=== PATIENT | female | born 1975 | race Caucasian/White ===

== ENCOUNTER 2023-01-15 08:48 | Outpatient (OUT) | payer OTHER, BC, SELFPAY ==
--- NOTE | 2023-01-15 08:51 | MM_ITS ---
Patient: BERENICE WISDOM Exam Date: 01/15/2023 : 1975 Gender:F Ordering : DR Clark Bro . Admission #: [id number] Family : DR BULL SALES M.D. Order #: [id number] CLICK HERE TO VIEW EXAM RADIOLOGY REPORT PROCEDURE: MM TOMOSYNTHESIS SCREENING BI COMPARISON: [facility] M[facility]M SCREEN 3D ANU CAD, 10/16/2021. [facility] M[facility]M SCREEN ANU W CAD, 05/24/2020. [facility] MAMM ANU DIAG W CAD, 11/09/2017. [facility] MAMM SCREEN ANU W CAD, 05/15/2017. INDICATIONS: Screening mammogram Z12.31 Calculator Name NCI Breast Cancer Risk Assessment Tool 5 Year Breast Cancer Risk 0.90% Lifetime Breast Cancer Risk 10.60% Personal Breast Cancer No Personal Ovarian Cancer No Treatments None Family Cancers Grandfather-paternal with bone and blood cancer at age 80. LOCATION: [facility] BREAST COMPOSITION: Heterogeneously dense,which may obscure small masses. FINDINGS: DIAGNOSTIC CATEGORY 2--BENIGN FINDING: RIGHT BREAST: No significant suspicious finding. Scattered benign-appearing calcifications are present. No significant change has occurred. LEFT BREAST: No significant suspicious finding. Scattered benign-appearing calcifications are present. No significant change has occurred. RECOMMENDATIONS: ROUTINE MAMMOGRAM AND CLINICAL EVALUATION IN 12 MONTHS. PLEASE NOTE: A NORMAL MAMMOGRAM DOES NOT EXCLUDE THE POSSIBILITY OF BREAST CANCER. A CLINICALLY SUSPICIOUS PALPABLE LUMP SHOULD BE BIOPSIED. Dictated by: Gustavo Braun M.D. on 01/15/2023 at 11:30 Approved by: Gustavo Braun M.D. on 01/15/2023 at 11:38
== END 2023-01-15 08:49 | disposition home or self-care (01) ==
PROVIDERS: PCP Family Medicine; Visit Provider Obstetrics & Gynecology
DX: Z12.31 Encounter for screening mammogram for malignant neoplasm of breast (principal); Z80.8 Family history of malignant neoplasm of other organs or systems
CPT/HCPCS: 77063; 77067

== ENCOUNTER 2024-03-01 19:18 | Outpatient (REF) | payer OTHER, BC, SELFPAY | END 2024-03-01 19:19 | disposition home or self-care (01) | LOC: LAB 19:18 | PROVIDERS: PCP Family Medicine; Visit Provider Physician Assistant | DX: Z01.419 Encounter for gynecological examination (general) (routine) without abnormal findings (principal) | CPT/HCPCS: 88175 ==

== ENCOUNTER 2025-03-07 18:41 | Outpatient (REF) | payer OTHER, BC, SELFPAY ==
--- OUTSIDE RECORDS SUMMARY | 2025-03-07 18:48 | XMS_ITS | CCD ---
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 Name Role Phone ELENO ., DR SANTOS Attending Unavailabl e ELENO ., DR SANTOS Consulting Unavailnancy e ELENO ., DR SANTOS Admitting Unavailnancy SALES, DR GOTTLIEB Primary Care Unavailable Veronica Sales MD Primary Care Provider MY EMMANUEL Attending Unavailable PRINCESS LEE Referring Unavailable PRINCESS LEE Primary Care Unavailable Veronica Sales MD Unavailable BEATA HARTMANN Referring Unavailable BEATA HARTMANN Attending Unavailable VERONICA SALES Attending Unavailable KRYS DUONG Attending Unavailable VERONICA SALES Attending Unavailable VERONICA SALES Attending Unavailable BEATA HARTMANN Attending Unavailable KRYS DUONG Referring Unavailable Princess Goodwin Primary Care Provider 1( [phone] VERONICA SALES Unavailable GARY JACKSON Unavailable VERONICA SALES Unavailable GARY JACKSON Unavailable PRINCESS LEE Referring Unavailable PRINCESS LEE Primary Care Unavailable Allergies Allergy Classification Reported Allergen(s) Allergy Type Date of Onset Reaction(s) Facility (3 sources) Naproxen; Translations: [NAPROXEN] Drug Allergy [address] [facility] Repository (18 sources) HMG-CoA reductase inhibitor Drug Allergy 3 [facility] (18 sources) Ibuprofen Drug Allergy 3 [facility] [employer] Work Phone: (19 sources) Naproxen; Translations: [NAPROXEN] Drug Allergy 4 GI Disturbance [facility] Work Phone: (2 sources) HMG-CoA reductase inhibitor; Translations: [PTIPOKV-GYW-NY A REDUCTASE INHIBITORS] Propensity to adverse reactions to drug 3 [facility] Medications Current Medications Medication Drug Class(es) Dates Sig (Normalized) Sig (Original) [id number] 200 actuat albuterol 0.09 mg/actuat metered dose inhaler (11 sources) beta2-Adrenergic Agonist Start: 06-13-2024 End: 06-13-2025 take 2 puff(s) by inhalation every four hours for wheezing albuterol HFA 90 mcg/act inhaler Indications: Subacute cough Inhale 2 puffs every 4 (four) hours if needed for wheezing 18 g 06/13/2024 03/07/2025 Discontinued (Therapy completed) End: 01-16-2025 take 2 puff(s) by inhalation every four hours for wheezing albuterol sulfate HFA 90 mcg/actuation aerosol inhaler INHALE 2 PUFFS EVERY 4 HOURS IF NEEDED FOR WHEEZING. 01/16/2025 completed Not Available Not Available Not Available calcium carbonate 500 mg oral tablet (3 sources) calcium carbonat e (Os-Arnoldo) 1250 (500 Ca) MG tablet every 12 (twelve) hours 0 Active doxycycline hyclate 100 mg oral tablet (4 sources) Tetracycline-class Drug Start: 2023 End: 2024 doxycycline (Vibra-Tabs) 100 MG tablet Indications: Acute non-recurrent pansinusitis Take 1 tablet (100 mg) by mouth in the morning and 1 tablet (100 mg) before bedtime. Do all this for 10 days. Take with a full glass of water and do not lie down for at least 30 minutes after.. 20 tablet 05/11/2024 05/21/2024 Active fluticasone propionate 0.05 mg/actuat metered dose nasal spray (2 sources) Corticosteroid take 1 spray(s) nasal route once daily fluticasone propionate 50 mcg/actuation nasal spray,suspension 1 spray in each nostril Once a day , Nasally active Encounter Date: 01/19/2024 Status: 'Taking'; Not Available Not Available Not Available hydrOXYzine hydrochloride 25 mg oral tablet (3 sources) Antihistamine Start: 2022 take 1 tablet by mouth every six hours as needed for anxiety and anxiety and anxiety hydrOXYzine HCl (Atarax) 25 MG tablet Indications: Anxiety Take 1 tablet (25 mg) by mouth every 6 (six) hours if needed for itching or anxiety 30 tablet 0 07/17/2023 Active methylPREDNISolone (2 sources) Corticosteroid Start: 2023 End: 2023 methylPREDNISolone (Medrol Dospak) 4 MG tablets Indications: Subacute cough Follow schedule on package instructions 21 tablet 06/13/2024 06/20/2024 Active predniSONE 20 mg oral tablet (2 sources) Start: 2023 take 1 tablet by mouth once daily prednisone 20 mg tablet 1 tablet Once a day , Orally 08/05/2023 active Encounter Date: 01/19/2024 Status: 'Not-Taking'; Not Available Not Available Not Available sertraline 50 mg oral tablet (20 sources) Serotonin Reuptake Inhibitor Start: 2023 End: 2024 take 1 tablet by mouth once daily sertraline (Zoloft) 50 MG tablet Indications: Anxiety TAKE 1 TABLET BY MOUTH EVERY DAY 90 tablet 1 01/29/2025 Active Start: 09-01-2023 sertraline (Zo loft) 50 MG tablet Indications: Anxiety 1 TAB ONCE DAILY 90 tablet 1 09/01/2023 Active Start: 08-10-2023 End: 09-01-2023 take 0.5 tablet by mouth every week in the morning, then take 1 tablet by mouth once daily sertraline (Zoloft) 50 MG tablet Indications: Anxiety TAKE 1/2 TABLET BY MOUTH IN THE MORNING FOR THE FIRST WEEK, THEN INCREASE TO 1 TAB ONCE DAILY 90 tablet 0 08/10/2023 09/01/2023 Discontinued (Reorder) take 0.5 tablet by m outh once daily sertraline 50 mg tablet TAKE 1/2 TABLET BY MOUTH EVERY DAY active Not Available Not Available Not Available sod sulf-pot chloride-mag sulf 1.479-0.188- 0.225 gram tablet (2 sources) Start: 01-21-2024 sod sulf-pot chloride-mag sulf 1.479-0.188- 0.225 gram tablet Indications: Encounter for screening colonoscopy Please see instructional sheet given by physicians office. 24 tablet 01/21/2024 Active traZODone hydrochloride 100 mg oral tablet (20 sources) Serotonin Reuptake Inhibitor Start: 09-07-2023 End: 01-29-2025 take 1 tablet by mouth at bedtime traZODone (Desyrel) 100 MG tablet Indications: Primary insomnia TAKE 1 TABLET BY MOUTH AT BEDTIME 90 tablet 1 01/29/2025 Active valACYclovir 500 mg oral tablet (9 sources) Herpesvirus Nucleoside Analog DNA Polymerase Inhibitor, Herpes Simplex Virus Nucleoside Analog DNA Polymerase Inhibitor, Herpes Zoster Virus Nucleoside Analog DNA Polymerase Inhibitor valACYclovir (Valtrex) 500 MG tablet Take by mouth 2 (two) times a day as needed Active Completed/Discontinued Medications Medication Drug Class(es) Dates Sig (Normalized) Sig (Original) amoxicillin 500 mg oral capsule (8 sources) Penicillin-class Antibacterial Start: 06-02-2024 End: 01-13-2025 take 1 capsule by mouth in the morning, then take 1 capsule by mouth in the evening, then take 1 capsule by mouth at bedtime amoxicillin (Amoxil) 500 MG capsule Indications: Strep pharyngitis Take 1 capsule (500 mg) by mouth in the morning and 1 capsule (500 mg) in the evening and 1 capsule (500 mg) before bedtime. Do all this for 10 days. 30 capsule 06/02/2024 06/13/2024 Discontinued Start: 08-05-2023 take 1 tablet by rodger th three times daily amoxicillin 500 mg tablet 1 tablet Three times a day , Orally 08/05/2023 active Encounter Date: 01/19/2024 Status: 'Not-Taking'; Not Available Not Available Not Available 12 hr cetirizine hydrochloride 5 mg / pseudoephedrine hydrochloride 120 mg extended release oral tablet (2 sources) alpha-Adrenergic Agonist, Histamine-1 Receptor Antagonist Start: 10-20-2023 End: 01-16-2025 take 1 tablet by mouth once daily as needed Zyrtec-D 5 mg-120 mg tablet,extended release 1 tablet as needed Once a day , Orally 10/20/2023 01/16/2025 completed Encounter Date: 01/19/2024 Status: 'Taking'; Not Available Not Available Not Available methylprednisolone 4 mg tablets in a dose pack (2 sources) End: 01-13-2025 methylprednisolone 4 mg tablets in a dose pack TAKE 6 TABLETS ON DAY 1 DIRECTED ON PACKAGE AND DECREASE BY 1 TAB EACH DAY FOR A TOTAL OF 6 DAYS 01/13/2025 completed Not Available Not Available Not Available Sutab 1.479-0.188-0.225 gram tablet (2 sources) End: 01-16-2025 Sutab 1.479-0.188-0.225 gram tablet PLEASE SEE INSTRUCTIONAL SHEET GIVEN BY PHYSICIANS OFFICE. 01/16/2025 completed Not Available Not Available Not Available Problems Active Problems Problem Classification Problem Date Documented Date Episodic/Chronic Abdominal pain (2 sources) Acute abdominal pain; Translations: [Right upper quadrant pain] Onset: 01-31-2025 Resolved: 01-31-2025 Episodic Anxiety disorders (5 sources) Anxiety; Translations: [Anxiety disorder, unspecified] Onset: 01-16-2025 09-01-2023 Chronic Cardiac dysrhythmias (1 source) Palpitations; Translations: [Palpitations] 09-01-2023 Episodic Disorders of lipid metabolism (20 sources) Dyslipidemia; Translations: [Hyperlipidemia, unspecified] Onset: 10-06-2019 06-30-2023 Chronic Headache; including migraine (18 sources) Tension-type headache; Translations: [Tension-type headache, unspecified, not intractable] Onset: 06-30-2023 06-30-2023 Chronic Immunizations and screening for infectious disease (1 source) Encounter for screening for human papillomavirus (HPV); Translations: [ENC SCREENING HUMAN PAPILLOMAVIRUS] Onset: 10-18-2022 Episodic Miscellaneous mental health disorders (3 sources) Primary insomnia; Translations: [Primary insomnia] 09-07-2023 Chronic Mood disorders (18 sources) Mild depression; Translations: [Mild depression] Onset: 06-30-2023 06-30-2023 Chronic Other lower respiratory disease (2 sources) Cough; Translations: [Subacute cough] 06-13-2024 Episodic Other nutritional; endocrine; and metabolic disorders (18 sources) Morbid obesity; Translations: [Morbid (severe) obesity due to excess calories] Onset: 10-06-2019 06-30-2023 Chronic Other nutritional; endocrine; and metabolic disorders (18 sources) Obese class I; Translations: [Obesity, unspecified] Onset: 02-29-2020 06-30-2023 Chronic Other screening for suspected conditions (not mental disorders or infectious disease) (8 sources) Encounter for screening for malignant neoplasm of cervix; Translations: [Encounter for screening for malignant neoplasm of colon] Onset: 10-14-2022 Episodic Other upper respiratory disease (2 sources) Nasal congestion; Translations: [Nasal congestion] 05-11-2024 Episodic Other upper respiratory infections (18 sources) Sinusitis; Translations: [Chronic sinusitis, unspecified] Onset: 06-30-2023 06-30-2023 Chronic Other upper respiratory infections (4 sources) Acute pansinusitis; Translations: [Acute pansinusitis, unspecified] 05-11-2024 Episodic Residual codes; unclassified (18 sources) Obstructive sleep apnea syndrome; Translations: [Obstructive sleep apnea (adult) (pediatric)] Onset: 12-08-2019 06-30-2023 Chronic Unclassified (1 source) Colon Cancer Screening Onset: 01-21-2024 Past or Other Problems Problem Classification Problem Date Documented Da te Episodic/Chronic Malaise and fatigue (2 sources) Fatigue; Translations: [Other fatigue] Onset: 01-16-2025 Resolved: 01-16-2025 Episodic Other gastrointestinal disorders (1 source) Acute diarrhea; Translations: [Diarrhea, unspecified] Onset: 01-31-2025 Resolved: 01-31-2025 Episodic Residual codes; unclassified (18 sources) Insomnia; Translations: [Insomnia, unspecified] Onset: 06-30-2023 06-30-2023 Episodic Results Test Name Value Interpretation Reference Range Facility US ABDOMEN LMTDon 02-05-2025 US ABDOMEN LMTD US ABDOMEN LMTD HISTORY: A 49-year-old female with a history of the right upper quadrant abdominal pain. TECHNIQUE: Multiple real-time images of the right upper abdomen are obtained. Color Doppler study is performed. COMPARISON: None available. FINDINGS: The visualized portion of the liver is normal in morphology and echogenicity. No focal masses are identified. The gallbladder is normal in size and configuration. The gallbladder wall thickness measures 7.0 mm. There is no evidence of echogenic foci or acoustic shadowing to suggest cholelithiasis. The common bile duct is normal and measures 2.4 mm in diameter. No intrahepatic biliary ductal dilatation is identified. There is a negative sonographic Hogan's sign. The visualized pancreas appears normal. There is no evidence of free fluid in the upper abdomen. IMPRESSION: 1. No evidence of cholelithiasis or biliary ductal dilatation. There is a negative sonographic Hogan's sign. 2. The visualized region of the liver is unremarkable. 3. The visualized pancreas appears unremarkable. Finalized by Arturo Ye MD on 02/05/2025 10:50 AM Normal [facility] XR CHEST 2 VIEWSon XR CHEST 2 VIEWS EXAM: XR CHEST 2 VIE WS Clinical History: Cough for two months, recent strep throat Reference Exam: No comparison Findings: The cardiopericardial silhouette is normal in appearance. The pulmonary vessels are not cephalized. There is no alveolar edema, pneumonia, or pneumothorax. Negative for pleural effusion. The skeleton is unremarkable. Impression: Negative for specific acute cardiopulmonic pathology. Dictated on: 06/13/2024 8:17 AM This report has been electronically signed and approved by the interpreting Radiologist. Normal Not Available XR Chest 2 Viewson EXAM: XR CHEST 2 VIE WS Clinical History: Cough for two months, recent strep throat Reference Exam: No comparison Findings: The cardiopericardial silhouette is normal in appearance. The pulmonary vessels are not cephalized. There is no alveolar edema, pneumonia, or pneumothorax. Negative for pleural effusion. The skeleton is unremarkable. Impression: Negative for specific acute cardiopulmonic pathology. Dictated on: 06/13/2024 8:17 AM This report has been electronically signed and approved by the interpreting Radiologist. Eron Lorenz MD - 06/13/2024 EXAM: XR CHEST 2 VIEWS Clinical History: Cough for two months, recent strep throat Reference Exam: No comparison Findings: The cardiopericardial silhouette is normal in appearance. The pulmonary vessels are not cephalized. There is no alveolar edema, pneumonia, or pneumothorax. Negative for pleural effusion. The skeleton is unremarkable. Impression: Negative for specific acute cardiopulmonic pathology. Dictated on: 06/13/2024 8:17 AM This report has been electronically signed and approved by the interpreting Radiologist. [facility] Radiology Study observation (narrative) [facility] XR Chest 2 ViewsOrdered By: Eron Partida on 06-13-2024 [facility] Work Phone: S. pyogenes DNA JEFFERY+probe No m (Unsp spec)on 06-02-2024 Interpretation and review of laboratory results Abnormal [facility] RESULT Positive Negative [facility] - Microbiology an d Antimicrobial susceptibilityon 05-11-2024 SARS-CoV-2 (COVID-19) RNA JEFFERY+probe Ql (Unsp spec) - [facility] No Panel Informationon 05-11 FLU A - [facility] FLU B - [facility] Interpretation and review of laboratory results Normal [facility] BI MAMMOGRAM SCREENING TOMOS YNTHESIS BILATERALon 03-04-2024 BI MAMMOGRAM SCREENING TOMOSYNTHESIS BILATERAL This is a summary report. The complete report is available in the patient's medical record. If you cannot access the medical record, please contact the sending organization for a detailed fax or copy. EXAMINATION: BI MAMMOGRAM SCREENING TOMOSYNTHESIS BILATERAL CLINICAL HISTORY:Breast Cancer Screening COMPARISON: January 15, 2023 . RESULT: Density: There are scattered areas of fibroglandular density There is no suspicious mass, asymmetry, architectural distortion, or calcification. Typically benign calcifications. Overall appearance stable. IMPRESSION: BIRADS 2 - Benign Follow-up: Routine Screening Mamm Board Certified Radiologists. Accredited by the ACR and FDA. MAMMOGRAPHY IS VERY IMPORTANT TO YOUR HEALTH. THE [place] GUIDELINES RECOMMEND THAT WOMEN 40 YEARS OF AGE AND OLDER SHOULD HAVE A MAMMOGRAM EVERY YEAR. A REMINDER LETTER WILL BE SENT AT THE APPROPRIATE TIME. THIS FACILITY UTILIZES A REMINDER SYSTEM TO ENSURE ALL PATIENTS RECEIVE REMINDER NOTIFICATIONS AT THE APPROPRIATE TIME BASED ON THE RECOMMENDATIONS OF THIS EXAM. THIS INCLUDES REMINDERS FOR ROUTINE SCREENING MAMMOGRAMS, DIAGNOSTIC MAMMOGRAMS IN WHICH THE PATIENT IS ASKED TO RETURN FOR ADDITIONAL VIEWS, OR OTHER BREAST IMAGING INTERVENTIONS WHEN APPROPRIATE. THE PATIENT WILL BE PLACED IN THE APPROPRIATE REMINDER SYSTEM INCLUDING A REMINDER AT THE APPROPRIATE TIME FOR ANY PENDING ADDITIONAL VIEWS. TRANSCRIBED BY: ELECTRONICALLY SIGNED BY: Ashok Canseco MD Normal Not Available PAP ACOG PANEL 2: 30 to 65on 10-21-2022 . . Normal [facility] Comment on above: Result Comment: Perf ormed at: WB Performed By: #### [id number] #### [facility] [address] [address] [address] Erickson Thomason Age Gdln ACOG Testing 30-[address] [facility] Comment on above: Performed By: #### [id number] #### [facility] [address] [place] [address] Dr. Erickson Thomason DIAGNOSIS: Comment Normal [facility] Comment on above: Result Comment: NEGA TIVE FOR INTRAEPITHELIAL LESION OR MALIGNANCY. Performed at: WB Performed By: #### [id number] #### [facility] [address] [place] [address] Dr. Erickson Thomason HPV Aptima Negative Normal Negative [facility] Comment on above: Result Comment: This nucleic acid amplification test detects fourteen high-risk HPV types (16,18,31,33,35,39,45,51,52,56,58,59,66,68) without differentiation. Performed at: =G Performed By: #### [id number] #### [facility] [address] [place] [address] Dr. Erickson Thomason HPV Genotype Reflex Comment Normal [facility] Comment on above: Result Comment: Crit eria not met, HPV Genotype not performed. Performed at: WB Performed By: #### [id number] #### [facility] [address] [place] [address] Dr. Erickson Thomason Methodology: Comment Normal [facility] Comment on above: Result Comment: This liquid based ThinPrep(R) pap test was screened with the use of an image guided system. Performed at: WB Performed By: #### [id number] #### [facility] [address] [place] [address] Dr. Erickson Thomason Note: Comment Normal [facility] Comment on above: Result Comment: The Pap smear is a screening test designed to aid in the detection of premalignant and malignant conditions of the uterine cervix. It is not a diagnostic procedure and should not be used as the sole means of detecting cervical cancer. Both false-positive and false-negative reports do occur. . Performed at: WB Performed By: #### [id number] #### [facility] [address] [place] [address] Dr. Erickson Thomason Performed by: Comment Normal [facility] Comment on above: Result Comment: Rolanda Franks, Supervisory Metal Punch Press Operator (ASCP) Performed at: WB Performed By: #### [id number] #### [facility] [address], [place] [address] Dr. Erickson Thomason Specimen adequacy: Comment Normal [facility] Comment on above: Result Comment: Sati sfactory for evaluation. No endocervical component is identified. Performed at: WB Performed By: #### [id number] #### [facility] [address], [place] [address] Dr. Erickson Thomason Lipid Panelon 01-06-2022 Cholesterol [Mass/Vol] 222 mg/dL High <200 [facility] Tinsmith Apprentice Comment on above: Order Comment: [facility] Testing performed at: [employer] [facility], [address] [place] [address], [address] [place] [address], [address] [place] [address], Mechanotherapist: Jose Barron MD [facility] Collection Date/Time: [facility] Results Received Date/Time: [facility] Reported Date/Time: Performed By: #### L IPD #### [facility] Default [address] [place] [address] Cholesterol in HDL [Mass/Vol] 52 mg/dL Normal > OR = 50 [facility] [employer] Apprentice Comment on above: Order Comment: [facility] performed at: [employer] [facility], [address] [place] [address], [address] [place] [address], [address] [place] [address], Mechanotherapist: Jose Barron MD [facility] Date/Time: [facility] Results Received Date/Time: [facility] Reported Date/Time: Performed By: #### L IPD #### [facility] Default [address] [place] [address] Cholesterol in LDL [Mass/Vol] 134 mg/dL High [facility] [employer] Apprentice Comment on above: Order Comment: [facility] performed at: [employer] [facility], [address] [place] [address], [address] [place] [address], [address] [place] [address], Mechanotherapist: Jose Barron MD [facility] Date/Time: [facility] Results Received Date/Time: [facility] Reported Date/Time: Result Comment: Refe rence range: <100 Desirable range <100 mg/dL for primary prevention; <70 mg/dL for patients with CHD or diabetic patients with > or = 2 CHD risk factors. LDL-C is now calculated using the Tristan calculation, which is a validated novel method providing better accuracy than the Friedewald equation in the estimation of LDL-C. Sony SS et al. NEGAR. 2013;310(19): 5849-6037 (http://education.Chloe + Isabel/faq/TUP648) Performed By: #### L IPD #### [facility] Default [address] [place] [address] NON HDL CHOLESTEROL 170 mg/dL (calc) High <130 [facility] [employer] Comment on above: Order Comment: [facility] performed at: [employer] [facility], [address] [place] [address], [address] [place] [address], [phone], Mechanotherapist: Jose Barron MD [facility] Date/Time: [id number] [facility] Results Received Date/Time: [id number] [facility] Reported Date/Time: Result Comment: For patients with diabetes plus 1 major ASCVD risk factor, treating to a non-HDL-C goal of <100 mg/dL (LDL-C of <70 mg/dL) is considered a therapeutic option. Performed By: #### L IPD #### [facility] Default [address] [place] [address] Triglyceride [Mass/Vol] 215 mg/dL High <150 [facility] [employer]ice Comment on above: Order Comment: [facility] performed at: [employer] [facility], [address] [place] [address], [address] [place] [address], [phone], Mechanotherapist: Jose Barron MD [facility] Date/Time: [id number] [facility] Results Received Date/Time: [id number] [facility] Reported Date/Time: Result Comment: If a non-fasting specimen was collected, consider repeat triglyceride testing on a fasting specimen if clinically indicated. Jason et al. J. of Clin. Lipidol. 2015;9:129-169. Performed By: #### L IPD #### [facility] Default [address] [place] [address] MRI Lumbar Spine w/o + w/on 09-04-2021 MRI Lumbar Spine w/o + w/ HISTORY: Intermittent chronic low back pain, left leg numbness, left leg weakness, surgery (2016) PROCEDURE: Duxter Signa HDXT 1.5. Sagittal T1, T2, STIR and axial T1 and T2 contiguous and cone down images through the lumbar spine were performed with and without contrast administration. 15 cc or ProHance was administered. FINDINGS: Normal lumbar vertebral body height and alignment. L5/S1 pedicle screw fusion hardware, laminectomy. Normal conus medullaris and filum terminale. Normal paravertebral soft tissues. T12/L1 - L4/5: Normal. L5/S1: Normal disc space height. No significant spinal canal stenosis. Right neural foramina evaluation obscured from pedicle screw fusion hardware artifact; however significant stenosis is not suggested. No abnormal enhancement. No left neural foraminal stenosis. IMPRESSION: No significant spinal canal or left sided neural foraminal stenosis. Report reported and signed by Ashok Canseco on 09/04/2021 1112 Normal [facility] Complete Blood Count with Au to Diffon 07-29-2021 Basophils (Bld) [#/Vol] 0.02 10*3/uL Normal 0.00-0.20 [facility] Specialist Comment on above: Performed By: #### C CELIA, CBCAD #### [facility] [address] [place], [place] [id number] Basophils/100 WBC (Bld) 0.3 % Normal [facility] Specialist Comment on above: Performed By: #### C MP, CBCAD #### [facility] [address] [place], [place] [id number] Eosinophils (Bld) [#/Vol] 0.05 10*3/uL Normal 0.02-0.50 [facility] Specialist Comment on above: Performed By: #### C MP, CBCAD #### [facility] [address] [place], [place] [id number] Eosinophils/100 WBC (Bld) 0.8 % Normal [facility] Comment on above: Performed By: #### C MP, CBCAD #### [facility] [address] [place], [place] [id number] Erythrocyte distribution width (RBC) [Ratio] 12.6 % Normal 11.0-15.0 [facility] Comment on above: Performed By: #### C MP, CBCAD #### [facility] [address], [place] [id number] Hematocrit (Bld) [Volume fraction] 38.9 % Normal 35.0-47.0 [facility] Comment on above: Performed By: #### C MP, CBCAD #### [facility] [address], [place] [id number] Hemoglobin (Bld) [Mass/Vol] 13.2 g/dL Normal 11.6-15.5 [facility] Comment on above: Performed By: #### C CELIA, CBCAD #### [facility] [address], [place] [id number] Lymphocytes (Bld) [#/Vol] 1.5 10*3/uL Normal 0.9-3.9 [facility] Comment on above: Performed By: #### C MP, CBCAD #### [facility] [address], [place] [id number] Lymphocytes/100 WBC (Bld) 24.3 % Normal [facility] Comment on above: Performed By: #### C CELIA, CBCAD #### [facility] [address], [place] [id number] MCH (RBC) [Entitic mass] 29.4 pg Normal 27.0-33.0 [facility] Comment on above: Performed By: #### C MP, CBCAD #### [facility] [address], [place] [id number] MCHC (RBC) [Mass/Vol] 33.9 g/dL Normal 32.0-36.0 [facility] Comment on above: Performed By: #### C MP, CBCAD #### [facility] [address], [place] [id number] MCV (RBC) [Entitic vol] 87 fL Normal 80-100 [facility] Comment on above: Performed By: #### C MP, CBCAD #### [facility] [address], [place] [id number] Monocytes (Bld) [#/Vol] 0.5 10*3/uL Normal 0.2-0.9 [facility] Comment on above: Performed By: #### C MP, CBCAD #### [facility] [address], [place] [id number] Monocytes/100 WBC (Bld) 8.4 % Normal [facility] Comment on above: Performed By: #### C MP, CBCAD #### [facility] [address], [place] [id number] Neutrophils (Bld) [#/Vol] 3.9 10*3/uL Normal 1.5-7.8 [facility] Comment on above: Performed By: #### C MP, CBCAD #### [facility] [address], [place] [id number] Neutrophils/100 WBC (Bld) 66.0 % Normal [facility] Comment on above: Performed By: #### C MP, CBCAD #### [facility] [address], [place] [id number] Platelet mean volume (Bld) [Entitic vol] 9.50 fL Normal 7.50-12.50 [facility] Comment on above: Performed By: #### C MP, CBCAD #### [facility] [address], [place] [id number] Platelets (Bld) [#/Vol] 228 10*3/uL Normal 140-400 [facility] Comment on above: Performed By: #### C MP, CBCAD #### [facility] [address], [place] [id number] RBC (Bld) [#/Vol] 4.49 10*6/uL Normal 3.90-5.20 [facility] Special[facility] Comment on above: Performed By: #### C MP, CBCAD #### [facility] [address], [place] [id number] RDW-SD 39.5 fL Normal 37.0-50.0 [facility] Comment on above: Performed By: #### C MP, CBCAD #### [facility] [address], [place] [id number] WBC (Bld) [#/Vol] 6.0 10*3/uL Normal 3.8-11.0 Marilee rubin [place] [employer] Comment on above: Performed By: #### C MP, CBCAD #### [facility] [address], [place] [id number] Comprehensive Metabolic Pane ramez 07-29-2021 Albumin [Mass/Vol] 4.8 g/dL Normal 3.6-5.1 Marilee rubin [place] [employer] Comment on above: Performed By: #### C MP, CBCAD #### [facility] [address], [place] [id number] Albumin/Globulin [Mass ratio] 2.2 {ratio} Normal 1.0-2.5 [facility] Comment on above: Performed By: #### C MP, CBCAD #### [facility] [address], [place] [id number] ALP [Catalytic activity/Vol] 48 U/L Normal 35-119 [facility] Comment on above: Performed By: #### C MP, CBCAD #### [facility] [address], [place] [id number] ALT [Catalytic activity/Vol] 15 U/L Normal 6-33 [facility] Comment on above: Result Comment: 06/26 Female reference range changed. Performed By: #### C MP, CBCAD #### [facility] [address], [place] [id number] Anion gap [Moles/Vol] 17 mmol/L Normal 12-20 [facility] Comment on above: Result Comment: Effe ctive 08/01/2019 reference range changed. Performed By: #### C MP, CBCAD #### [facility] [address], [place] [id number] AST [Catalytic activity/Vol] 16 U/L Normal 9-34 [facility] Comment on above: Performed By: #### C MP, CBCAD #### [facility] [address], [place] [id number] Bilirubin [Mass/Vol] 0.64 mg/dL Normal 0.30-1.20 [facility] [place] [facility] Specialist Comment on above: Performed By: #### C MP, CBCAD #### [facility] [address], [place] [id number] BUN/CREA 27 Ratio High 6-22 [facility] Comment on above: Performed By: #### C MP, CBCAD #### [facility] [address], [place] [id number] Calcium [Mass/Vol] 9.8 mg/dL Normal 8.6-10.2 [facility] Comment on above: Performed By: #### C MP, CBCAD #### [facility] [address], [place] [id number] Chloride [Moles/Vol] 103 mmol/L Normal 98-107 [facility] Comment on above: Performed By: #### C MP, CBCAD #### [facility] [address], [place] [id number] CO2 [Moles/Vol] 23 mmol/L Normal 20-31 [facility] Comment on above: Performed By: #### C MP, CBCAD #### [facility] [address], [place] [id number] Creatinine [Mass/Vol] 0.6 mg/dL Normal 0.6-1.4 [facility] Comment on above: Performed By: #### C MP, CBCAD #### [facility] [address], [place] [id number] eGFRAA 127 mL/min/1.73m2 Normal >60 [facility] Comment on above: Performed By: #### C MP, CBCAD #### [facility] [address], [place] [id number] eGFRNAA 105 mL/min/1.73m2 Normal >60 [facility] Comment on above: Performed By: #### C MP, CBCAD #### [facility] [address], [place] [id number] Globulin (S) [Mass/Vol] 2.2 g/dL Normal 1.9-3.7 [facility] Comment on above: Performed By: #### C MP, CBCAD #### [facility] [address], [place] [id number] Glucose [Mass/Vol] 89 mg/dL Normal 65-99 [facility] Comment on above: Result Comment: For FASTING Glucose --- ADA reference ranges: Normal 65-99 mg/dl Prediabetes 100-125 Diabetes >/= 126 Performed By: #### C MP, CBCAD #### [facility] [address], [place] [id number] Potassium [Moles/Vol] 4.2 mmol/L Normal 3.5-5.5 [facility] Comment on above: Performed By: #### C MP, CBCAD #### [facility] [address], [place] [id number] Protein [Mass/Vol] 7.0 g/dL Normal 6.1-8.1 [facility] Comment on above: Performed By: #### C MP, CBCAD #### [facility] [address], [place] [id number] Sodium [Moles/Vol] 139 mmol/L Normal 135-146 Marilee rubin [place] [employer] Comment on above: Performed By: #### C MP, CBCAD #### [facility] [address], [place] [id number] Urea nitrogen [Mass/Vol] 17 mg/dL Normal 7-25 [facility] Comment on above: Performed By: #### C MP, CBCAD #### [facility] [address], [place] [id number] CBC and Differentialon 09-28 Abs Baso 0.03 k/uL Normal <0.11 [facility] Abs [place] 0.52 k/uL Normal <0.87 [facility] Abs Neut 3.67 k/uL Normal 1.45-7.50 [facility] Absolute nRBC <0.01 Normal <0.01 [facility] Basophils/100 WBC (Bld) 0.5 % Normal [facility] DTYPE Auto Diff Normal [facility] Eosinophils (Bld) [#/Vol] 0.16 10*3/uL Normal <0.46 [facility] Eosinophils/100 WBC (Bld) 2.6 % Normal [facility] Erythrocyte distribution width (RBC) [Ratio] 13.2 % Normal 11.5-15.0 [facility] Hematocrit (Bld) [Volume fraction] 39.1 % Normal 36.0-46.0 [facility] Hemoglobin (Bld) [Mass/Vol] 13.5 g/dL Normal 11.5-15.5 [facility] Lymphocytes (Bld) [#/Vol] 1.74 10*3/uL Normal 1.00-4.00 [facility] Lymphocytes/100 WBC (Bld) 28.4 % Normal [facility] MCH 29.1 pG Normal 26.0-34.0 [facility] MCHC (RBC) [Mass/Vol] 34.5 g/dL Normal 30.5-36.0 [facility] MCV (RBC) [Entitic vol] 84.3 fL Normal 80.0-100.0 [facility] Monocytes/100 WBC (Bld) 8.5 % Normal [facility] Neutrophils/100 WBC (Bld) 60.0 % Normal [facility] NRBCs 0.0 /100 WBC Normal 0 [facility] Platelet mean volume (Bld) [Entitic vol] 9.3 fL Normal 9.0-12.7 [facility] Platelets (Bld) [#/Vol] 238 10*3/uL Normal 150-400 [facility] RBC (Bld) [#/Vol] 4.64 10*6/uL Normal 3.90-5.20 [facility] WBC (Bld) [#/Vol] 6.13 10*3/uL Normal 3.70-11.00 [facility] Comp Metabolic Panelon 09-28 Albumin [Mass/Vol] 4.6 g/dL Normal 3.9-4.9 [facility] ALP [Catalytic activity/Vol] 48 U/L Normal 34-123 [facility] ALT [Catalytic activity/Vol] 9 U/L Normal 7-38 [facility] Anion gap [Moles/Vol] 8 mmol/L Low 9-18 [facility] AST [Catalytic activity/Vol] 13 U/L Normal 13-35 [facility] Bilirubin [Mass/Vol] 1.1 mg/dL Normal 0.2-1.3 [facility] [place] Calcium [Mass/Vol] 9.9 mg/dL Normal 8.5-10.2 [facility] Chloride [Moles/Vol] 104 mmol/L Normal 97-105 [facility] [place] CO2 [Moles/Vol] 27 mmol/L Normal 22-30 [facility] Creatinine [Mass/Vol] 0.80 mg/dL Normal 0.58-0.96 [facility] eGFR- Amer. >60 Normal [facility] eGFR-All Other Races >60 Normal [facility] [place] Comment on above: Result Comment: eGFR (Estimated GFR) Units of measure: mL/min/1.73 meters squared eGFR is derived from the reexpressed MDRD Study equation using the following parameters: serum creatinine, age, gender and race. The creatinine assay has been calibrated to be traceable to IDMS. An eGFR <60 mL/min/1.73m2 for >3 months is consistent with chronic kidney disease. Refer to KDOQI guidelines for clinical interpretation. In patients with unstable renal function, e.g. those with acute kidney injury, the eGFR may not accurately reflect actual GFR. Glucose [Mass/Vol] 92 mg/dL Normal 74-99 [facility] Comment on above: Result Comment: The [place] Diabetes Association (ADA) provides guidance for cutoff values for fasting glucose and random glucose. The ADA defines fasting as no caloric intake for at least 8 hours. Fasting plasma glucose results between 100 to 125 mg/dL indicate increased risk for diabetes (prediabetes). Fasting plasma glucose results greater than or equal to 126 mg/dL meet the criteria for diagnosis of diabetes. In the absence of unequivocal hyperglycemia, results should be confirmed by repeat testing. In a patient with classic symptoms of hyperglycemia or hyperglycemic crisis, random plasma glucose results greater than or equal to 200 mg/dL meet the criteria for diagnosis of diabetes. Reference: Standards of Medical Care in Diabetes 2016, [place] Diabetes Association. Diabetes Care. 2016.39(Suppl 1). Potassium [Moles/Vol] 5.0 mmol/L Normal 3.7-5.1 [facility] Protein [Mass/Vol] 6.9 g/dL Normal 6.3-8.0 [facility] Sodium [Moles/Vol] 139 mmol/L Normal 136-144 [facility] Urea nitrogen [Mass/Vol] 16 mg/dL Normal 7-21 [facility] Ferritinon 09-28-2020 Ferritin [Mass/Vol] 85.2 ng/mL Normal 14.7-205.1 [facility] Comment on above: Performed By: #### S ERFOL, ZINC, B1WB, VITD, FERR, IRON, HBA1C, B12 #### [facility] [address] [place] [id number] Folate, Serumon 09-28-2020 Folate [Mass/Vol] ng/mL Normal >4.7 [facility] Comment on above: Result Comment: A re sult of > 20 ng/mL is not necessarily indicative of a pathologic or treatable condition: it reflects a limitation of the test methodology. Assay reference range: 4.8 to 24.2 ng/mL. Suitable for detection of folate deficiency. Reference: Folate III (Folate III) [package insert V 2.0 [employer]]. [employer], [place], [place]: May 2015. Performed By: #### S ERFOL, ZINC, B1WB, VITD, FERR, IRON, HBA1C, B12 #### [facility] [address] [place], [place] [address] Hemoglobin A1con 09-28-2020 Glucose [Mass/Vol] 100 mg/dL Normal [facility] Comment on above: Result Comment: eAG: (Estimated average glucose) is a calculated value from HgbA1c and is clearance representative of the average blood glucose level in the last 2-3 month period. Performed By: #### S ERFOL, ZINC, B1WB, VITD, FERR, IRON, HBA1C, B12 #### [facility] [address] [place], [place] [address] HbA1c (Bld) [Mass fraction] 5.1 % Normal 4.3-5.6 [facility] Comment on above: Result Comment: Amer [place] Diabetes Association guidelines indicate that patients with HgbA1c in the range 5.7-6.4% are at increased risk for development of diabetes, and intervention by lifestyle modification may be beneficial. HgbA1c greater or equal to 6.5% is considered diagnostic of diabetes. Performed By: #### S ERFOL, ZINC, B1WB, VITD, FERR, IRON, HBA1C, B12 #### [place] [address] Iron and TIBCon 09-28-2020 Iron [Mass/Vol] 94 ug/dL Normal 41-186 [facility] Comment on above: Performed By: #### S ERFOL, ZINC, B1WB, VITD, FERR, IRON, HBA1C, B12 #### [place] [id number] [place] [address] TIBC 334 ug/dL Normal 232-386 [facility] Comment on above: Performed By: #### S ERFOL, ZINC, B1WB, VITD, FERR, IRON, HBA1C, B12 #### [place] [address] Transferrin Saturatn 28 % Normal 15-57 [facility] [place] Comment on above: Performed By: #### S ERFOL, ZINC, B1WB, VITD, FERR, IRON, HBA1C, B12 #### [place] [address] Vitamin B1, Whole Blon 09-28 Vitamin B1 (TDP), WB 201.7 nmol/L Normal 84.0-213.0 [facility] Comment on above: Result Comment: This assay measures the concentration of thiamine diphosphate (TDP), the primary active form of vitamin B1. Approximately 90 percent of vitamin B1 present in whole blood is TDP. Thiamine and thiamine monophosphate, which comprise the remaining 10 percent, are not measured. This test was developed and its performance characteristics determined by [facility]'s Phillip Ferrara [facility] ([facility]). It has not been cleared or approved by the FDA. [facility] is regulated under CLIA as qualified to perform high complexity testing. This test is used for clinical purposes. It should not be regarded as investigational or for research. Performed By: #### S ERFOL, ZINC, B1WB, VITD, FERR, IRON, HBA1C, B12 #### [facility] [address] [place] [address] Vitamin B12on 09-28-2020 Cobalamin (Vitamin B12) [Mass/Vol] 937 pg/mL Normal 232-1245 [facility] Comment on above: Performed By: #### S ERFOL, ZINC, B1WB, VITD, FERR, IRON, HBA1C, B12 #### [facility] [address] [place] [phone] Vitamin D 25 Hydroxyon 09-28 Vitamin D 25 Hydroxy 53.7 ng/mL Normal 31.0-80.0 [facility] [place] Comment on above: Result Comment: Clas sification of 25 [place] Vitamin D status: Insufficiency/Moderate Deficiency: < or = 30 ng/mL Sufficiency/Optimal Levels: 31 to 80 ng/mL Toxicity: > 100 ng/mL Test performed by chemiluminescent immunoassay. Performed By: #### S ERFOL, ZINC, B1WB, VITD, FERR, IRON, HBA1C, B12 #### [place] [address] [place] 09-28-2020 Zinc 93 ug/dL Normal 55-150 [facility] Comment on above: Result Comment: This test was developed and its performance characteristics determined by [facility]'s Phillip Josias [facility] ([facility]). It has not been cleared or approved by the FDA. [facility] is regulated under CLIA as qualified to perform high complexity testing. This test is used for clinical purposes. It should not be regarded as investigational or for research. Performed By: #### S ERFOL, ZINC, B1WB, VITD, FERR, IRON, HBA1C, B12 #### [place] [id number] [place] [id number] Basic Metabolic Panlon 02-21 Anion gap [Moles/Vol] 11 mmol/L Normal 9-18 [facility] Comment on above: Performed By: #### C BC, BMP ####[place] [phone] Calcium [Mass/Vol] 9.1 mg/dL Normal 8.5-10.5 [facility] Comment on above: Performed By: #### C BC, BMP ####[place] [phone] Chloride [Moles/Vol] 99 mmol/L Normal 98-110 [facility] Comment on above: Performed By: #### C BC, BMP ####[place] [phone] CO2 [Moles/Vol] 24 mmol/L Normal 23-32 [facility] Comment on above: Performed By: #### C MINISTERIO, BMP ####[place] [phone] Creatinine [Mass/Vol] 0.80 mg/dL Normal 0.70-1.40 [facility] Comment on above: Performed By: #### C MINISTERIO, BMP ####[place] [phone] eGFR- Amer. >60 Normal >60 [facility] Comment on above: Performed By: #### C MINISTERIO, BMP ####[place] [phone] GFR/1.73 sq M predicted among non-blacks MDRD (S/P/Bld) [Vol rate/Area] mL/min/{1.73_m2} Normal >60 [facility] Comment on above: Performed By: #### C BC, BMP ####[place] [phone] Glucose [Mass/Vol] 89 mg/dL Normal 65-100 [facility] Comment on above: Performed By: #### C BC, BMP ####[place] [phone] Potassium [Moles/Vol] 4.4 mmol/L Normal 3.5-5.0 [facility] Comment on above: Performed By: #### C MINISTERIO, BMP ####[place] [phone] Sodium [Moles/Vol] 134 mmol/L Normal 132-148 [facility] Comment on above: Performed By: #### C BC, BMP ####[place] [phone] Urea nitrogen [Mass/Vol] 9 mg/dL Normal 8-25 [facility] Comment on above: Performed By: #### C BC, BMP ####[place] [phone] CBCon 02-22-2020 Absolute nRBC <0.01 Normal <0.01 [facility] Comment on above: Performed By: #### C BC, BMP ####[place] [phone] Erythrocyte distribution width (RBC) [Ratio] 13.4 % Normal 11.5-15.0 [facility] Comment on above: Performed By: #### C BC, BMP ####[place] [phone] Hematocrit (Bld) [Volume fraction] 37.1 % Normal 36.0-46.0 [facility] Comment on above: Performed By: #### C BC, BMP ####[place] [phone] Hemoglobin (Bld) [Mass/Vol] 12.0 g/dL Normal 11.5-15.5 [facility] Comment on above: Performed By: #### C BC, BMP ####[place] [phone] MCH (RBC) [Entitic mass] 26.8 pG Normal 26.0-34.0 [facility] Comment on above: Performed By: #### C BC, BMP ####[place] [phone] MCHC (RBC) [Mass/Vol] 32.3 g/dL Normal 30.5-36.0 [facility] Comment on above: Performed By: #### C BC, BMP ####[place] [phone] MCV (RBC) [Entitic vol] 82.8 fL Normal 80.0-100.0 [facility] Comment on above: Performed By: #### C BC, BMP ####[place] [phone] Platelet mean volume (Bld) [Entitic vol] 9.4 fL Normal 9.0-12.7 [facility] Comment on above: Performed By: #### C MINISTERIO, BMP ####[place] [phone] Platelets (Bld) [#/Vol] 317 10*3/uL Normal 150-400 [facility] Comment on above: Performed By: #### C MINISTERIO, BMP ####[place] [phone] RBC (Bld) [#/Vol] 4.48 10*6/uL Normal 3.90-5.20 [facility] Comment on above: Performed By: #### C MINISTERIO, BMP ####[place] [phone] WBC (Bld) [#/Vol] 9.67 10*3/uL Normal 3.70-11.00 [facility] Comment on above: Performed By: #### Eben MANDEL, BMP ####[place] [phone] NURSING PROGon 02-22-2020 NURSING PROG HNO ID: [id number] Author: Maddy Zapata (Rn) MARIANGEL Sahni Service: ? Author Type: Registered Nurse Type: Nursing Progress Note Filed: 02/22/2020 2:50 PM Note Text: Nursing Progress Note Patient Name: Berenice Wisdom Patient Location: [id number]/[id number]-[id number] __ Daily Note:Went over discharge instructions with pt and pt's spouse. Scripts given to pt. No further needs at this time. This note was completed by: Maddy Sahni RN [facility] NURSING PROG HNO ID: [id number] Author: Matilde AltamiranoRn) MARIANGEL Dickinson Service: ? Author Type: Registered Nurse Type: Nursing Progress Note Filed: 02/22/2020 4:00 AM Note Text: Nursing Progress Note Patient Name: Berenice Wisdom Patient Location: [place] [address]/[address] __ Daily Note:2053: Pt AANDOx3. Adequate saturation on RA. Pt up with standby. Abdomen soft/tender. BS hypoactive. No flatus. Denies N/V. Tolerating diet. Ambulating halls. This note was completed by: Matilde Dickinson RN [facility] NUTRITIONon 02-22-2020 NUTRITION HNO ID: [id number] Author: Keyon Hernandez Service: Nutrition Therapy Author Type: [employer] Commerce Marketing Analyst Type: Nutrition Filed: 02/22/2020 12:00 PM Note Text: NUTRITION THERAPY PHYSICIAN ADVISOR NOTE SERVICE DATE: 02/22/2020 SERVICE TIME: 11:00 AM Visit Type: Diet Education Plan of Care: Supplements: Ensure Max Follow-Up: Tech Reassessment Nursing Admission Assessment Malnutrition Score: 0 Nutrition Intake: Current Diet: DIET BARIATRIC: phase 2 Tolerating Phase 2 Anthropometrics: Last weight: 190 lb Body mass index is 36.01 kg/m?. Diet Education: completed bariatric diet SIGNATURE: KEYON HERNANDEZ DTR PATIENT NAME: Berenice Wisdom DATE: February 22, 2020 TIME: 11:59 AM PAGER: [phone] [facility] PLAN OF CAREon 02-22-2020 PLAN OF CARE HNO ID: [id number] Author: Jenifer Brower ([employer]) Service: Pharmacy Author Type: Lead Injection Mold Technician Type: Plan of Care Filed: 02/22/2020 4:39 PM Note Text: Pharmacy Discharge Medication Service: This patient has elected to receive their discharge prescriptions through the [facility] Bedside Prescription Delivery program. The prescriptions are currently being processed. A follow-up note will be entered once the prescriptions have been filled and delivered to the patient. Please contact me with any questions or updates to the patient's discharge medications. Jenifer Brower ([employer]) DCT Contact Info: [id number] [facility] PLAN OF CARE HNO ID: [id number] Author: Jenifer Brower ([employer]) Service: Pharmacy Author Type: Lead Injection Mold Technician Type: Plan of Care Filed: 02/22/2020 4:39 PM Note Text: TRASH MAN BEDSIDE DELIVERY SURVEY 1. Patient to use [facility] Bedside Delivery - YES Insurance Information as follows: 2. Insurance card on file - YES 3. Credit card for payment - N/A [facility] PLAN OF CARE HNO ID: [id number] Author: Jenifer Brower ([employer]) Service: Pharmacy Author Type: Lead Injection Mold Technician Type: Plan of Care Filed: 02/22/2020 4:40 PM Note Text: PHARMACY BEDSIDE DELIVERY SERVICE Patient Name: Berenice Wisdom The marked outpatient medications were filled and delivered bedside. Medication List START taking these medications acetaminophen 325 mg tablet Commonly known as: TYLENOL Take 2 tablets by mouth every 6 hours as needed for Pain. ondansetron 4 mg tablet Commonly known as: ZOFRAN Take 1 tablet by mouth every 8 hours as needed for Nausea/Vomiting. oxyCODONE 5 mg/5 mL oral solution Commonly known as: ROXICODONE Take 5 mL by mouth every 6 hours as needed for Pain for up to 3 days. CONTINUE taking these medications cholecalciferol (Vitamin D3) 1,250 mcg (50,000 unit) Cap capsule Commonly known as: VITAMIN D3 Take 1 capsule by mouth one time a week. CPAP Auto-CPAP (E0601) 6 - 15 cmH2O with heated tubing and heated humidification. Lifetime supplies. Provide device with remote/modem capabilities for monitoring of compliance and efficacy (AHI/Leak/Etc). Per patient choice but try nasal mask first. Dispense as written. A4604 Tubing, Heated (1 per 3 months) A7037 Tubing, CPAP (1 per 3 months) A7038 Filter, Disposable (2 per month) A7039 Filter, Non-Disposable (1 per 6 mos) A7046 Humidifier Chamber E0562 Heated Humidifier A7036 Chinstrap Device (1 per 6 months) A7035 Headgear Device (1 per 6 months) A7034 Nasal Mask (1 per 3 months) A7032 Nasal Cushion Replacement (2 per month) A7030 Full Face Mask (1 per 3 months) A7031 Face Mask Interface (1 per month) A7029 Nasal Pillows (2 per month) A7033 Nasal Pillow Replacement (2 per month) DULoxetine 30 mg capsule Commonly known as: CYMBALTA fenofibrate nanocrystallized 48 mg tablet Commonly known as: TRICOR traZODone 100 mg tablet Commonly known as: DESYREL You might also be taking other medications not listed above. If you have questions about any of your other medications, talk to the person who prescribed them or your Primary Care Provider. Jenifer Brower (Freight Car Inspector) PAGER: [phone] February 22, 2020 4:39 PM [facility] PROGRESSon 02-22-2020 PROGRESS HNO ID: [id number] Author: Eriberto (Billy) Patrice Service: General Surgery Author Type: Resident Type: Progress Notes Filed: 02/22/2020 7:13 AM Note Text: General Surgery Progress Note Service Date: February 22, 2020 Assessment and Plan: Berenice Wisdom is a 44 year old female with history of morbid obesity and DWIGHT admitted following laparoscopic sleeve gastrectomy 02/21/20. Doing well this morning. ? -Continue current pain regimen -Advance to phase II diet + supplements as tolerated - continue to encourage PO fluids. -continue mIVF at 75/hr -Lovenox ppx -Strict I/Os - replete lytes as needed this AM -Dispo: RNF care. Potential dc later today if progressing well. Plan to be discussed with Dr. Carlos Enrique Valencia. Subjective: No acute events overnight. Pain controlled. Denies nausea or vomiting. Ambulating. Tolerating CLD. Physical Exam: BP (!) 142/40 Pulse (!) 56 Temp 36.8 ?C (98.3 ?F) (Oral) Resp 18 Ht 154.9 cm (5' 0.98 ) Wt 86.4 kg (190 lb 7.6 oz) LMP 06/28/2018 SpO2 97% BMI 36.01 kg/m? GENERAL: awake, alert, in no acute distress SKIN: warm, dry LUNGS: nonlabored breathing on room air CARDIAC: warm and well perfused throughout, regular rate ABDOMEN: soft, appropriately tender, non distended WOUND: clean dry and intact with overlying skin glue Labs: CBC, BMP, MG, PHOS Recent Labs 02/16/20 1038 12/12/19 1555 WBC 8.67 7.58 HB 13.6 12.8 HCT 41.7 39.4 PLT 324 353 NA 134* 139 K 4.6 4.2 CHLOR 95* 99 CO2 25 26 BUN 21 12 CREAT 0.83 0.71 GLUC 80 84 CA 10.6* 10.0 Liver Function, Amylase, AND Lipase Recent Labs 02/16/20 1038 12/12/19 1555 TPROT 7.8 7.6 ALB 4.8 4.9 ALT 9 11 AST 17 14 ALKPHOS 54 57 TBILI 0.7 0.6 Coags No results for input(s): APTT, PT, INR in the last 02634 hours. Intake and Output: Date 02/21/20699 - 02/22/20 0659 02/22/20699 - 02/23/20 0659 Shift 6097-8659 4083-8315 2915-7068 24 Hour Total 8760-6729 8159-5051 2759-1785 24 Hour Total INTAKE PO 210 180 390 PO 210 180 390 IV 0072 040 4606 Volume (mL) (lactated ringers infusion) 1000 1000 Volume (mL) (lactated ringers infusion) 859 859 Shift Total 9382 313 7545 2249 OUTPUT Urine 1000 1000 2000 Void (ml) 1000 1000 2000 # of BMs Number of BMs 0 x 0 x 0 x Blood 16 16 Estimated Blood loss 16 16 Shift Total 16 1000 1000 2016 Weight (kg) 86.4 86.4 86.4 86.4 86.4 86.4 86.4 Current Medications: Current Facility-Administered Medications Medication Dose Route Frequency - DULoxetine 30 mg cap(s) (CYMBALTA) 30 mg ORAL DAILY - enoxaparin 40 mg injection (LOVENOX) 40 mg SUBCUTANEOUS q 12 HR - lactated ringers infusion 100 mL/hr INTRAVENOUS CONTINUOUS - ondansetron (PF) 4 mg injection (ZOFRAN) 4 mg INTRAVENOUS q 6 H PRN - oxyCODONE 5 mg oral liquid (ROXICODONE) 5 mg ORAL q 6 H PRN - acetaminophen 650 mg tab(s) (TYLENOL) 650 mg ORAL q 6 H Eriberto Ibrahim MD General Surgery PGY-6 [facility] ANES POSTPROC EVALon 020 ANES POSTPROC EVAL HNO ID: [id number] Author: Bryan James MD Service: ? Author Type: Anesthesiologist Type: Anesthesia Postprocedure Evaluation Filed: 02/21/2020 3:33 PM Note Text: POST ANESTHESIA EVALUATION NOTE : 1975 Procedure Summary Date: 02/21/20 Room / Location: [place] [address] / OR Anesthesia Start: 1246 Anesthesia Stop: 1411 Procedure: LAPAROSCOPIC LONGITUDINAL GASTRECTOMY, GASTRIC RESTRICTIVE PROCEDURE (N/A Abdomen) Diagnosis: Morbid obesity (HCC) (Morbid obesity (HCC) [E66.01]) Surgeon: Carlos Enrique Valencia Responsible Provider: Bryan James MD Anesthesia Type: general ASA Status: 2 Anesthesia Type: general Last vitals Vitals Value Taken Time BP 129/70 02/21/2020 3:30 PM Temp 36.6 ?C (97.9 ?F) 02/21/2020 2:09 PM Pulse 91 02/21/2020 3:32 PM HR SpO2 91 02/21/2020 3:32 PM Resp 19 02/21/2020 3:32 PM SpO2 95 % 02/21/2020 3:32 PM Vitals shown include unvalidated device data. Post Anesthesia Patient Status Patient Evaluation: bedside. Anticipated Disposition: inpatient floor planned admission. Neurological Status: aware and responsive. Pulmonary Status: breathing comfortably on room air Airway Control: returned to baseline unsupported. Cardiovascular Status: stable. Postoperative Hydration: acceptable. Intraoperative Events: no significant anesthesia events Post Operative Nausea/Vomiting Status: no significant post operative nausea or vomiting Anesthetic Observations: no significant anesthetic observations Recommendation: further care per PACU/ICU/floor team. SIGNATURE: Bryan James MD PATIENT NAME: Berenice Wisdom DATE: February 21, 2020 TIME: 3:32 PM CSN: [id number] [facility] ANES PRE-OPon 02-21-2020 ANES PRE-OP HNO ID: [id number] Author: Bryan James MD Service: ? Author Type: Anesthesiologist Type: Anesthesia Preprocedure Evaluation Filed: 02/21/2020 12:24 PM Note Text: ANESTHESIOLOGY DAY OF SURGERY NOTE : 1975 Procedure(s) (LRB): LAPAROSCOPIC LONGITUDINAL GASTRECTOMY, GASTRIC RESTRICTIVE PROCEDURE (N/A) Surgeon(s): Carlos Enrique Valencia Estimated body mass index is 36.26 kg/m? as calculated from the following: Height as of 02/16/20: 154.9 cm (5' 1 ). Weight as of 02/16/20: 87 kg (191 lb 14.4 oz). Most recent hematocrit and potassium results: Hematocrit 41.7 02/16/2020 Potassium 4.6 02/16/2020 Relevant Problems ANESTHESIA (+) DWIGHT (obstructive sleep apnea) PULMONARY (+) DWIGHT (obstructive sleep apnea) I - PHYSICAL EVALUATION AIRWAY Patient intubated: No. Tracheostomy tube not present Mallampati: III. TM distance: >3 FB. Neck ROM: full ROM without neurological symptoms. Mouth opening: adequate. Short neck: yes. Thick neck: yes DENTAL Dental findings: teeth intact. Additional exam findings: no II - ANESTHESIA PLAN ASA Score: 2 Anesthetic Plan: general The patient is not a current smoker. NPO Status: adequate Perioperative beta-jennifer/statin: not applicable. Monitoring plan: standard ASA. Postoperative analgesic plan: multimodal analgesia. Anesthetic Risks, Benefits, Alternatives, Personnel Discussed. Consent obtained from: patient. Patient / Surrogate agrees to blood products: Yes Significant changes in the patient condition since the History and Physical, not otherwise documented in primary service progress note: no. Potential Anesthesia issues that may suggest increased risk of complications or contractions to planned procedure: none. Vitals Value Taken Time BP 101/51 02/21/2020 10:59 AM Pulse 71 02/21/2020 10:59 AM Resp 17 02/21/2020 10:59 AM Temp 36.6 ?C (97.9 ?F) 02/21/2020 10:59 AM SpO2 99 % 02/21/2020 10:59 AM Facility-Administered Medications as of 02/21/2020 Medication Dose Route Frequency - lidocaine 10 mg/mL (1 %) 1-2 mg injection (XYLOCAINE) 0.1-0.2 mL INTRADERMAL PRN - lactated ringers infusion 5-30 mL/hr INTRAVENOUS CONTINUOUS - heparin 5,000 Units injection 5,000 Units SUBCUTANEOUS Pre-Op Once - ceFAZolin iv piggyback 2 g in D5W (iso-osmotic) 100 mL (ANCEF) 2 g INTRAVENOUS ONCE - [COMPLETED] acetaminophen 1,000 mg tab(s) (TYLENOL) 1,000 mg ORAL ONCE - [COMPLETED] gabapentin 600 mg cap(s) (NEURONTIN) 600 mg ORAL ONCE - scopolamine 1 mg over 3 days 1 Patch (TRANSDERM-SCOP) 1 Patch TRANSDERMAL q 72 HR And - [START ON 02/23/2020] scopolamine - REMOVE PATCH OTHER q 72 HR And - scopolamine - VERIFY patch OTHER q 8 H Outpatient Medications as of 02/21/2020 Medication Sig - cholecalciferol, Vitamin D3, (VITAMIN D3) 1,250 mcg (50,000 unit) cap capsule Take 1 capsule by mouth one time a week. - CPAP Auto-CPAP (E0601) 6 - 15 cmH2O with heated tubing and heated humidification. Lifetime supplies. Provide device with remote/modem capabilities for monitoring of compliance and efficacy (AHI/Leak/Etc). Per patient choice but try nasal mask first. Dispense as written. A4604 Tubing, Heated (1 per 3 months) A7037 Tubing, CPAP (1 per 3 months) A7038 Filter, Disposable (2 per month) A7039 Filter, Non-Disposable (1 per 6 mos) A7046 Humidifier Chamber E0562 Heated Humidifier A7036 Chinstrap Device (1 per 6 months) A7035 Headgear Device (1 per 6 months) A7034 Nasal Mask (1 per 3 months) A7032 Nasal Cushion Replacement (2 per month) A7030 Full Face Mask (1 per 3 months) A7031 Face Mask Interface (1 per month) A7029 Nasal Pillows (2 per month) A7033 Nasal Pillow Replacement (2 per month) - DULoxetine (CYMBALTA) 30 mg capsule Take 30 mg by mouth once daily. - fenofibrate nanocrystallized (TRICOR) 48 mg tablet Take 96 mg by mouth once daily. - traZODone (DESYREL) 100 mg tablet TAKE 1 TABLET BY MOUTH EVERYDAY AT BEDTIME I have interviewed and examined the patient. I have reviewed the medical record and/or the pre-anesthesia evaluation, pertinent labs, and test results. This contains updated information obtained within 48 hours of Surgery/Procedure. SIGNATURE: Bryan James MD PATIENT NAME: Berenice Wisdom DATE: February 21, 2020 TIME: 12:22 PM CSN: [id number] [facility] BRIEF OP NOTon 02-21-2020 BRIEF OP NOT HNO ID: [id number] Author: Lorrie Quinones (Fel) Service: Vascular Surgery Author Type: Resident Type: Brief Op Note Filed: 02/21/2020 2:07 PM Note Text: Attestation signed by Carlos Enrique Valencia at 02/21/2020 2:34 PM Dictation [id number] Carlos Enrique Valencia MD BRIEF OPERATIVE NOTE WITH CANCER STAGING LOG ID: [id number] Surgery Date: 02/21/2020 Incision/Procedure Start Time: 1:07 PM Incision Close/Procedure End Time: 1:59 PM Surgeon(s) and Tree Doctor(s): Surgeon(s) and Role: * Carlos Enrique Valencia - Primary * Bryan Mckeon (Billy) DO Nixon - Resident - Assisting * Lorrie Quinones (Fel) - Fellow No Additional Staff Procedure(s): Procedure(s) (LRB): LAPAROSCOPIC LONGITUDINAL GASTRECTOMY, GASTRIC RESTRICTIVE PROCEDURE (N/A) EGD Anesthesia: General Findings: no sleeve twist, hemostatic staple line Estimated Blood Loss: 20 mls Specimens: stomach Complications: None PRE-OP/PRE-PROCEDURE DIAGNOSIS: obesity POST-OP/POST-PROCEDURE DIAGNOSIS: Same as Preop SIGNATURE: Lorrie Quinones MD PATIENT NAME: Berenice Wisdom DATE: February 21, 2020 TIME: 2:05 PM PAGER/CONTACT #: [facility] HISTORY PHYSICALon 0 HISTORY PHYSICAL HNO ID: [id number] Author: Bryan Alicea DO Service: General Surgery Author Type: Resident Type: HANDP Filed: 02/21/2020 12:24 PM Note Text: UPDATED HISTORY AND PHYSICAL EXAMINATION ? SERVICE DATE: 02/21/2020 SERVICE TIME: 1230 PM ? PHYSICAL EXAM MUST BE COMPLETED ON ADMISSION ? The History and Physical (completed in the past 30 days) has been reviewed and the patient has been examined. The contents accurately reflect the patient's condition with the following additions or revisions since the HANDP was completed. ? Examination indicates no changes. This HANDP can be found in the Electronic Medical Record dated 02/17/2020. ? SIGNATURE: Bryan Alicea DO PATIENT NAME: Chelsea Wsidom DATE: February 21, 2020 TIME: 12:24 PM PAGER:[phone] [facility] NURSING PROGon 02-21-2020 NURSING PROG HNO ID: [id number] Author: Estela (Mariangel) MARIANGEL Marcus Service: ? Author Type: Registered Nurse Type: Nursing Progress Note Filed: 02/21/2020 5:13 PM Note Text: Nursing Progress Note Patient Name: Berenice Wisdom Patient Location: [place] [address] [address] __ Transfer Note: Patient transferred into room/unit PK3A10 in stable condition. Actions taken: at bedside. Patient standby assist. This note was completed by: Estela Marcus RN [facility] OPERATIVE NOon 02-21-2020 OPERATIVE NO HNO ID: [id number] Author: Carlos Enrique Valencia Service: General Surgery Author Type: Physician Type: Operative Report Filed: 02/22/2020 1:01 PM Note Text: [facility] - Operative Report BERENICE WISDOM : 1975 AGE: 44. SEX: F PATIENT TYPE: I HOSP SVC: GENS LOCATION: [facility] [place] ATTENDING PHYSICIAN: Carlos Enrique Valencia M.D. CSN NUMBER: [id number] DATE OF SURGERY/PROCEDURE: 02/21/2020 INCISION/PROCEDURE START TIME: 1307 hours. INCISION CLOSE/PROCEDURE END TIME: 1359 hours. PREOPERATIVE DIAGNOSIS: 1. Morbid obesity. 2. Dyslipidemia. 3. Gastroesophageal reflux disease. POSTOPERATIVE DIAGNOSIS: 1. Morbid obesity. 2. Dyslipidemia. 3. Gastroesophageal reflux disease. SURGEON: Carlos Enrique aVlencia M.D. TRANSFER CAR OPERATOR DRIER: Lorrie Quinones MD. SURGERY/PROCEDURE: Laparoscopic sleeve gastrectomy. ANESTHESIA: General OPERATIVE INDICATIONS: This 44-year-old woman, underwent a comprehensive evaluation for metabolic weight loss surgery. The operative plan was for laparoscopic sleeve gastrectomy. OPERATIVE FINDINGS: Completion upper endoscopy, demonstrated well calibrated sleeve with a straight staple line including anterior and posterior leaflets and hemostatic staple line. DESCRIPTION OF PROCEDURE: The patient was positioned supine with her arms out. Her abdomen was prepped and draped. The abdomen was insufflated with Veress needle in the left subcostal space. The abdomen was entered with a 12 mm Optical Trocar with a 10 mm 0-degree laparoscope in the left periumbilical space. There was no trauma from the Veress needle and it was removed. After preinjection with local anesthesia, 15 mm port was placed in the right periumbilical space, 5 mm port was placed in the right epigastrium, and a 5 mm port at the site of Veress needle. Patient was placed in reverse Trendelenburg. Joanna liver retractor was placed in the epigastrium, used to elevate the left lobe of the liver and exposed the hiatus. The lesser sac was entered on the greater curvature of the stomach. The omentum was dissected away from greater curvature using the Covidien LigaSure Device, taking care to preserve the gastroepiploic vessels. The short gastric vessels were ligated and divided with the same device. The fundus was dissected free from the retroperitoneum and the entire left crura was exposed. This completed the dissection. Inspection was made for hemostasis, which was Excellent. A sleeve gastrectomy was performed over a 40 [place] Bougie using a series of Covidian Signia 60 mm staple loads, all with staple line reinforcement. The first was the black load angled transversely, this was followed by 3 vertical staple loads, all purple staple loads, towards the angle of His. This completely resected the greater curvature and created a well calibrated sleeve. The adult upper endoscope was passed down the esophagus into the sleeve stomach. The endoscopic findings were described above. The stomach was desufflated. The endoscope was removed. Final inspection was made for hemostasis. The specimen was removed via the 15 mm fascial incision. The fascial site was closed with a 0 Vicryl suture, beneath this liver retractor was removed. The abdomen was desufflated. The remaining ports were removed. Skin was injected with local anesthesia. The skin was closed with 4-0 Monocryl. Dressing of Dermabond was applied. DRAINS: None. COMPLICATIONS: None. SPECIMEN: Portion of stomach. ESTIMATED BLOOD LOSS: 10 mL. Carlos Enrique Valencia M.D. SHIN:[id number] /[id number] [facility] PT EDon 02-21-2020 PT ED HNO ID: [id number] Author: Johanna (Rn) MARIANGEL Rainey Service: Nursing Author Type: Registered Nurse Type: Patient Education Filed: 02/21/2020 11:02 AM Note Text: PATIENT EDUCATION TOPIC: PROCEDURE / SURGERY: Pre-op Teaching: Protocols PATIENT NAME: Berenice Wisdom PATIENT LOCATION: [facility] OR POOL/[facility] OR POOL READINESS TO LEARN COGNITIVE ABILITY: Alert and oriented MOTIVATION TO LEARN: Eager FAMILY SUPPORT: None - Unavailable/disinteres nestor INSTRUCTION PROVIDED TO: Patient PATIENT LEARNS BEST BY: Individual Instruction FACTORS AFFECTING LEARNING: None PHYSICAL LIMITATIONS AFFECTING LEARNING: None LEARNING RESPONSE DIAGNOSIS: ADULT: Well Adult PATIENT/FAMILY RESPONSE: Verbalizes understanding of: PRE-OPERATIVE INSTRUCTIONS-Correct action to take to follow pre-operative instructions METHOD OF INSTRUCTION: Individual instruction FOLLOW-UP PLAN: Complete - No need for follow-up INSTRUCTIONAL AIDS USED: NA SUPPLEMENTAL MATERIAL PROVIDED TO PATIENT: None REFERRAL (RECOMMENDATION): None Electronically Signed By: Jhoanna Rainey RN Normal [facility] SURGICAL PATHOLOGYon 020 SURGICAL PATHOLOGY Specimen originated from [facility] Specimen #: [id number] Submitting Physician: Carlos Enrique Valencia M.D. FINAL DIAGNOSIS Stomach, sleeve gastrectomy - Unremarkable oxyntic mucosa-lined stomach. KL/rw 02/24/2020 Pedro Barkley M.D. (Electronic Signature) _ SPECIMEN SUBMITTED A: PORTION OF STOMACH CLINICAL DATA MORBID OBESITY; WEIGHT LOSS; GASTRIC SLEEVE GROSS DESCRIPTION A. Received in formalin designated portion of stomach is a segment of stomach measuring 16.2 cm in length and up to 6.2 cm in circumference. The mucosal surface is malave with normal rugal folds. No polyps or ulcerations are grossly identified. Sectioning does not reveal any masses or nodules. The serosal aspect is malave and smooth. Occupational Health Nurse Manager sections are submitted in four cassettes. /[facility] 02/22/2020 Gross examination performed at [facility], [address] [place] [address] Date of Report: 02/24/2020 Date of Procedure: 02/21/2020 Date of Receipt: 02/21/2020 Submitted by: Carlos Enirque Valencia M.D. Location: [facility] Diagnostic interpretation performed at [facility] [place] [id number]. CLIA Number: [id number] [facility] NURSING PROGon 02-17-2020 NURSING PROG HNO ID: [id number] Author: Faisal (Rn) MARIANGEL Roberts Service: Nursing Author Type: Registered Nurse Type: Nursing Progress Note Filed: 02/17/2020 9:49 AM Note Text: PACC Nurse Progress Note History AND Physical: PACC Visit Date: 02/16/2020 Original HANDP Date: N/A ED visit Date: N/A Outside HANDP Scanned Date: N/A Labs Within Last 6 Months: CBC: Date 02/15 BMP/CMP: Date 02/15 TYPE AND SCREEN: Date 02/15 [place]: Date 02/15 within normal limits Imaging Within Last 12 Months: Chest X-ray Date of test: 11/2019 Result of test: No acute abnormality Cardiac Testing: EKG in last 12 Months: Yes: Date: 02/15, Comment: confirmed Last Menstrual Period: LMP Date: N/A Postmenopausal >1yr: No, S/P Hysterectomy: Yes BMI Percentile (PEDS): N/A Risk Assessment: N/A Anesthesia Review: N/A Narrative: N/A Pre-op Considerations: DWIGHT Chart Check: COMPLETED-covid ordered, not scheduled Faisal Roberts RN February 17, 2020 9:47 AM Normal [facility] HOSPon 02-08-2020 HOSP Patient:Berenice Wisdom MRN: Height:5' 1 (1.549 m) Weight:191 lb 14.4 oz (87.045 kg) Outpatient Medications as of 02/21/20: cholecalciferol, Vitamin D3, (VITAMIN D3) 1,250 mcg (50,000 unit) cap capsule CPAP DULoxetine (CYMBALTA) 30 mg capsule fenofibrate nanocrystallized (TRICOR) 48 mg tablet traZODone (DESYREL) 100 mg tablet Admission/Clinic Administered Medications as of 02/21/20: lidocaine 10 mg/mL (1 %) 1-2 mg injection (XYLOCAINE) lactated ringers infusion heparin 5,000 Units injection ceFAZolin iv piggyback 2 g in D5W (iso-osmotic) 100 mL (ANCEF) scopolamine 1 mg over 3 days 1 Patch (TRANSDERM-SCOP) scopolamine - REMOVE PATCH scopolamine - VERIFY patch Problem List: Morbid obesity (HCC) [E66.01] Dyslipidemia [E78.5] DWIGHT (obstructive sleep apnea) [G47.33] Obesity [E66.9] Allergies: Naproxen Date Verified: 02/21/20 Lab Values Lab Value Units Date High Low POTA* 4.6 mmol/L 02/16/2020 5.1 3.7 ELTON* 41.7 % 02/16/2020 46.0 36.0 Progress Notes ([address]): Carlos Enrique Valencia MD 02/13/2020 3:22 PM Signed Carlos Enrique Valencia MD Date of Service: February 13, 2020 Verbal consent was obtained from the patient to perform this virtual visit. She has completed the workup for sleeve gastrectomy. She was cleared for surgery. She is changing from Dr. Delgado to me. We had a good discussion. All questions answered. Patient is scheduled for next week. Carlos Enrique Valencia MD Progress Notes ([facility]): Tamiko Wood RN, RN 02/08/2020 2:[address] [facility] COORDINATION SURGERY APPROVAL CALL Received e-mail confirmation of insurance approval for bariatric surgery.Pre-operative call placed to the patient, this RN spoke with patient and agreed upon a surgery date of February 21 2020. Surgical episode request sent to [facility] surgery scheduling. -Patient instructed to start pre-op 800 calorie total protein liquid diet Primier - 1/2 shake + 3/4 cup [place] 30 - do 4x a day daily beginning 2 weeks prior to surgery. - Patient also advised to stop/avoid all NSAID'S, ASA, blood thinners, fish oil tablets and other herbal supplements and vitamins A-E including multi-vitamins beginning 7 days prior to surgery. - Medication List reviewed and patient will contact prescribing physician regarding cessation of None while on pre-operative diet. -Patient denies use of estrogen products . -Patient tolerating C-PAP and advised to bring C-PAP mask and tubing DOS. - Pt instructed to fax FMLA forms to front office medical assistant and allow 7-10 days for completion. Karina video assigned and Pt will view Drop video during pre-op nurse visit. All questions and concerns addressed and pt verbalized understanding. -Patient case reviewed. All nutrition appointments completed, psychology clearance obtained, surgeon visit and procedure type verified, medical optimization obtained and all testing complete. Con ABO No ordered Creatinine level 0.71 Tamiko Wood RN Normal [facility] Vital Signs Date Time Vital Sign Value Performing Clinician Facility 03-07-2025 10:15-0400 Body mass index (BMI) [Ratio] 28.38 kg/m2 Krys PALM Work Phone: [facility] 03-07-2025 10:15-0400 Body weight 68.13 kg Krys Duong PA Work Phone: [facility] 03-07-2025 10:15-0400 Diastolic blood pressure 70 mm[Hg] Krys Duong PA Work Phone: [facility] 03-07-2025 10:15-0400 Heart rate 80 /min Krys Duong PA Work Phone: [facility] 03-07-2025 10:15-0400 Systolic blood pressure 116 mm[Hg] Krys Duong PA Work Phone: [facility] 01-31-2025 01:00-0400 Body height 154.94 cm [facility] 01-31-2025 01:00-0400 Body mass index (BMI) [Ratio] 28 kg/m2 Princess Lee IN [facility] 01-31-2025 01:00-0400 Body surface area Derived from formula 1.7 m2 Princess Lee [place] [facility] 01-31-2025 01:00-0400 Body temperature 98.5 [degF] Princess Lee [place] [facility] 01-31-2025 01:00-0400 Body weight 67.22 kg Princess Lee IN [facility] 01-31-2025 01:00-0400 Diastolic blood pressure 75 mm[Hg] Princess Lee [place] [facility] 01-31-2025 01:00-0400 Heart rate 78 /min Princess Lee [place] [facility] 01-31-2025 01:00-0400 SaO2% (BldA) [Mass fraction] 99 % Princess Lee [place] - [facility] 01-31-2025 01:00-0400 Systolic blood pressure 105 mm[Hg] Princess eLe [place] [facility] 01-16-2025 01:00-0400 Body height 154.94 cm Princess Lee [place] - [facility] 01-16-2025 01:00-0400 Body mass index (BMI) [Ratio] 27.9 kg/m2 Princess Lee [place] [facility] 01-16-2025 01:00-0400 Body surface area Derived from formula 1.7 m2 Princess Lee [place] [facility] 01-16-2025 01:00-0400 Body weight 67.04 kg Princess Lee IN [facility] 01-16-2025 01:00-0400 Diastolic blood pressure 74 mm[Hg] Princess Lee [place] [facility] 01-16-2025 01:00-0400 Heart rate 79 /min Princess Lee [facility] [facility] 01-16-2025 01:00-0400 Respiratory rate 16 /min Princess Lee IN [facility] 01-16-2025 01:00-0400 SaO2% (BldA) [Mass fraction] 98 % Princess Lee IN [facility] 01-16-2025 01:00-0400 Systolic blood pressure 100 mm[Hg] Princess Lee IN [facility] 06-13-2024 09:27-0500 Body height 154.9 cm Beata Hartmann SERVICE INSPECTOR Work Phone: [facility] 06-13-2024 09:27-0500 Body mass index (BMI) [Ratio] 31.71 kg/m2 Beata Hartmann SERVICE INSPECTOR Work Phone: [facility] 06-13-2024 09:27-0500 Body temperature 98.6 [degF] Beata Hartmann SERVICE INSPECTOR Work Phone: [facility] 06-13-2024 09:27-0500 Body weight 76.11 kg Beata Hartmann SERVICE INSPECTOR Work Phone: [facility] 06-13-2024 09:27-0500 Diastolic blood pressure 80 mm[Hg] Beata Hartmann SERVICE INSPECTOR Work Phone: [facility] 06-13-2024 09:27-0500 Heart rate 81 /min Beata Hartmann SERVICE INSPECTOR Work Phone: [facility] 06-13-2024 09:27-0500 SaO2% (BldA) [Mass fraction] 98 % Beata Hartmann SERVICE INSPECTOR Work Phone: [facility] 06-13-2024 09:27-0500 Systolic blood pressure 120 mm[Hg] Beata Hartmann SERVICE INSPECTOR Work Phone: [facility] 06-02-2024 15:52-0500 Body height 154.9 cm Veronica Sales MD Work Phone: [facility] 06-02-2024 15:52-0500 Body mass index (BMI) [Ratio] 31.52 kg/m2 Veronica Sales MD Work Phone: [facility] 06-02-2024 15:52-0500 Body temperature 99.1 [degF] Veronica Sales MD Work Phone: [facility] 06-02-2024 15:52-0500 Body weight 75.66 kg Veronica Sales MD Work Phone: [facility] 06-02-2024 15:52-0500 Diastolic blood pressure 80 mm[Hg] Veronica Sales MD Work Phone: [facility] 06-02-2024 15:52-0500 Heart rate 95 /min Veronica Sales MD Work Phone: [facility] 06-02-2024 15:52-0500 SaO2% (BldA) [Mass fraction] 98 % Veronica Sales MD Work Phone: [facility] 06-02-2024 15:52-0500 Systolic blood pressure 128 mm[Hg] Veronica Sales MD Work Phone: [facility] 05-11-2024 12:00-0400 Body mass index (BMI) [Ratio] 31.78 kg/m2 Beata Hartmann SERVICE INSPECTOR Work Phone: [facility] 05-11-2024 12:00-0400 Body temperature 96.21 [degF] Beata Hartmann SERVICE INSPECTOR Work Phone: [facility] 05-11-2024 12:00-0400 Body weight 76.3 kg Beata Hartmann SERVICE INSPECTOR Work Phone: [facility] 05-11-2024 12:00-0400 Diastolic blood pressure 82 mm[Hg] Beata Hartmann SERVICE INSPECTOR Work Phone: [facility] 05-11-2024 12:00-0400 Heart rate 67 /min Beata Hartmann SERVICE INSPECTOR Work Phone: [facility] 05-11-2024 12:00-0400 SaO2% (BldA) [Mass fraction] 98 % Beata Hartmann SERVICE INSPECTOR Work Phone: [facility] 05-11-2024 12:00-0400 Systolic blood pressure 112 mm[Hg] Beata Hartmann SERVICE INSPECTOR Work Phone: [facility] 01-22-2024 10:24-0400 Body height 154.9 cm [facility] [address] [place] [address] 01-22-2024 10:24-0400 Body mass index (BMI) [Ratio] 30.23 kg/m2 [facility] 01-22-2024 10:24-0400 Body weight 72.58 kg [facility] 1 [facility] 01-21-2024 14:21-0400 Body weight 75.39 kg My Emmanuel SINTER MACHINE OPERATOR-SALES OPERATIONS ASSISTANT Work Phone: [facility] 01-21-2024 14:21-0400 Diastolic blood pressure 80 mm[Hg] My Emmanuel SINTER MACHINE OPERATOR-SALES OPERATIONS ASSISTANT Work Phone: [facility] 01-21-2024 14:21-0400 Heart rate 67 /min My Emmanuel SINTER MACHINE OPERATOR-SALES OPERATIONS ASSISTANT Work Phone: [facility] 01-21-2024 14:21-0400 Systolic blood pressure 131 mm[Hg] My Emmanuel SINTER MACHINE OPERATOR-SALES OPERATIONS ASSISTANT Work Phone: [facility] 09-01-2023 15:53-0500 Body height 154.9 cm Veronica Sales MD Work Phone: [facility] 09-01-2023 15:53-0500 Body mass index (BMI) [Ratio] 30.95 kg/m2 Veronica Sales MD Work Phone: [facility] 09-01-2023 15:53-0500 Body weight 74.3 kg Veronica Sales MD Work Phone: [facility] 09-01-2023 15:53-0500 Diastolic blood pressure 60 mm[Hg] Veronica Sales MD Work Phone: [facility] 09-01-2023 15:53-0500 Heart rate 69 /min Veronica Sales MD Work Phone: [facility] 09-01-2023 15:53-0500 SaO2% (BldA) [Mass fraction] 98 % Veronica Sales MD Work Phone: [facility] 09-01-2023 15:53-0500 Systolic blood pressure 102 mm[Hg] Veronica Sales MD Work Phone: [facility] Encounters Encounter Date Encounter Type Care Provider Facility Start: 03-07-2025 End: 03-07-2025 Bamboo flowsheet Krys PALM Work Phone: [facility] Start: 03-07-2025 End: 03-07-2025 Bamboo flowsheet Krys PALM Work Phone: [facility] Start: 03-07-2025 End: 03-07-2025 Patient encounter procedure Krys PALM Work Phone: [facility] Start: 03-07-2025 End: 03-07-2025 Periodic preventive med est patient 40-64yrs Krys PALM Work Phone: [facility] Comment on above: Well woman exam with routine gynecological exam; Encounter for screening mammogram for breast cancer Start: 02-01-2025 End: 02-01-2025 ambulatory [facility] Mario LEE [facility] Start: 01-31-2025 Office outpatient vi sit 15 minutes Princess Lee [place] [facility] Start: 01-28-2025 End: 01-29-2025 Refill Beata Hartmann NP Work Phone: [facility] Comment on above: Anxiety Primary insomnia Start: 01-16-2025 General examination of patient Princess Lee [place] [facility] Start: 01-16-2025 Periodic preventive med est patient 40-64yrs Princess Lee [place] [facility] Start: 08-03-2024 End: 08-03-2024 Refill Veronica Sales MD Work Phone: [facility] Comment on above: Anxiety Start: 08-03-2024 End: 08-03-2024 Refill Veronica Sales MD Work Phone: [facility] Comment on above: Primary insomnia Start: 06-13-2024 End: 06-13-2024 Office outpatient visit 15 minutes Beata Álvarezromanecho SERVICE INSPECTOR Work Phone: [facility] Comment on above: Subacute cough (Prim zenobia Dx) Start: 06-13-2024 End: 06-13-2024 ambulatory BEATA KAMPFER Not Available Start: 06-02-2024 End: 06-02-2024 Office outpatient visit 15 minutes Veronica Sales MD Work Phone: [facility] Comment on above: Strep pharyngitis (P rimary Dx) Start: 06-02-2024 End: 06-02-2024 ambulatory VERONICA SALES Not Available Start: 06-02-2024 End: 06-02-2024 Bamboo flowsheet Veronica Sales MD Work Phone: [facility] Start: 06-02-2024 End: 06-02-2024 Bamboo flowsheet Veronica Sales MD Work Phone: [facility] Start: 05-11-2024 End: 05-11-2024 Bamboo flowsheet Beata Álvarezromanecho SERVICE INSPECTOR Work Phone: [facility] Start: 05-11-2024 End: 05-11-2024 Bamboo flowsheet Beata Álvarezromanecho SERVICE INSPECTOR Work Phone: [facility] Start: 05-11-2024 End: 05-11-2024 Office outpatient visit 15 minutes Beata Álvarezromanecho SERVICE INSPECTOR Work Phone: [facility] Comment on above: Nasal congestion (Pr imary Dx); Acute non-recurrent pansinusitis Start: 05-11-2024 End: 05-11-2024 ambulatory BEATA KAMPFER Not Available Start: 03-04-2024 End: 03-04-2024 ambulatory KRYS DUONG Not Available Start: 03-01-2024 End: 03-01-2024 ambulatory KRYS DUONG Not Available Start: 01-22-2024 End: 01-22-2024 ambulatory [facility] Pat Phone Call Provider 1 [facility] - Pre Admit Start: 01-21-2024 End: 01-21-2024 Patient encounter procedure My Emmanuel SINTER MACHINE OPERATOR-SALES OPERATIONS ASSISTANT Work Phone: [facility] Comment on above: Encounter for screen ing colonoscopy (Primary Dx) Start: 01-21-2024 End: 01-21-[address] [facility] Start: 09-07-2023 Refill Veronica colmenares MD Work Phone: [facility] Comment on above: Primary insomnia (Pr imary Dx) Start: 09-01-2023 End: 09-01-2023 Office outpatient visit 15 minutes Veronica Sales MD Work Phone: [facility] Comment on above: Palpitations (Primar y Dx); Anxiety Start: 09-01-2023 End: 09-01-2023 ambulatory VERONICA SALES Not Available Start: 09-01-2023 Bamboo flowsheet Veronica miller MD Work Phone: [facility] Start: 09-01-2023 Bamboo flowsheet Veronica miller MD Work Phone: [facility] Start: 06-30-2023 End: 06-30-2023 ambulatory VERONICA SALES Not Available Start: 10-14-2022 End: 10-14-[address] TOM JOHANSEN . Facility: Procedures Date Procedure Procedure Detail Performing Clinician Start: 06-02-2024 Iadna streptococcus group a amplified probe tq Veronica Sales MD Work Phone: Start: 05-11-2024 STATUS COVID-19/FLU Beata Hartmann SERVICE INSPECTOR Work Phone: Start: 03-04-2024 Mammography Beata Hartmann SERVICE INSPECTOR Work Phone: Start: 01-25-2024 Colonoscopy Beata Hartmann NP Work Phone: Start: 06-30-2023 H/O: hysterectomy History of hysterectomy Veronica Sales MD Work Phone: Start: 10-16-2021 Mammography Veronica Sales MD Work Phone: Start: 07-27-2007 Reduction mammoplasty Princess Lee Start: 07-27-2004 section Princess Lee Start: 07-27-2002 section Princess Lee Start: 01-22-2000 Princess Lee Plan of Treatment Date Care Activity Detail Author Start: 01-24-2034 Screening for malign ant neoplasm of colon [facility] Start: 03-27-2025 Influenza vaccination Influenza Vacc ine (#1) [facility] Start: 03-07-2025 End: 05-07-2026 MG Breast - bilateral Screening Bilateral screening mammogram Imaging Routine Encounter for screening mammogram for breast cancer Expected: 03/07/2025 (Approximate), Expires: 05/07/2026 [facility] Work Phone: Comment on above: Expected: 03/07/2025 (Approximate), Expires: 05/07/2026 Start: 03-07-2025 End: 03-07-2025 Patient encounter procedure [facility] Comment on above: Arrived Start: 03-04-2025 Screening for malign ant neoplasm of breast Mammogram [facility] Start: 01-31-2025 US Gallbladder [facility] (Outpatient Registration) Start: 01-31-2025 InPerson; Acute Complex InPerson; Ac bo Complex [place] - [facility] Start: 01-20-2025 Tobacco Screening Tobacco Screening [facility] Start: 01-16-2025 25-Hydroxyvitamin D3+25-Hydroxyvitamin D2 [Mass/volume] in Serum or Plasma [facility] ([place] Start: 01-16-2025 CBC W Auto Different ial panel - Blood [facility] ([place] Start: 01-16-2025 Comprehensive metabo lic 2000 panel - Serum or Plasma [facility] ([place] Start: 01-16-2025 Iron and Iron bindin g capacity panel - Serum or Plasma [facility] ([place] Start: 01-16-2025 Lipid 1996 panel - S shani or Plasma [facility] ([place] Start: 01-16-2025 InPerson; NewPat PE Routine-60 InPerson; NewPat PE Routine-60 [facility] Start: 06-02-2024 End: 06-02-2024 Patient encounter procedure 06/02/2024 4:00 PM EST Office Visit [facility] [address] [place] [phone] Veronica Sales MD [address] [place], [place] [phone] Arrived [facility] Comment on above: Arrived Start: 05-11-2024 End: 05-11-2024 Patient encounter procedure 05/11/2024 12:00 PM EDT Office Visit [facility] [address] [place] [phone] Beata Hartmann NP [address] [place] [address] Arrived [facility] Comment on above: Arrived Start: 03-27-2024 Influenza vaccination [facility] Start: 01-25-2024 End: 01-25-2024 Admission to same day surgery center 01/25/2024 12:45 PM EDT - 01/25/2024 1:15 PM EDT Surgery [facility] [address] [place] [address] Kel Olson DO [address] [place] [id number] COLONOSCOPY DIAGNOSTIC / SCREENING [60285 (CPT )] [facility] Comment on above: COLONOSCOPY DIAGNOST IC / SCREENING [54624 (CPT )] Start: 01-25-2024 End: 01-25-2024 Colonoscopy flx dx w/collj spec when pfrmd COLONOSCOPY DIAGNOSTIC / SCREENING Screen for colon cancer 01/25/2024 12:45 PM EDT [facility] Start: 01-25-2024 Subsequent hospital visit by physician 01/25/2024 12:45 PM EDT Hospital Encounter [facility] [address] [place] [phone] Kel Olson DO [address] [place] [id number] [facility] Start: 01-24-2024 Influenza vaccination Influenza Vacc ine (#1) [facility] Comment on above: Postponed from 03/27 (Patient Refused) Start: 01-22-2024 End: 01-22-2024 ambulatory 01/22/2024 4:00 PM EDT Support Visit [facility] - Pre Admit [address] [place] [phone] [facility] - Pre Admit Start: 09-01-2023 End: 09-01-2023 Patient encounter procedure 09/01/2023 4:00 PM EST Office Visit [facility] [address] [place] [phone] Veronica Sales MD [address] [place], [place] [phone] Arrived [facility] Comment on above: Arrived Start: 03-27-2023 COVID-19 Vaccine ( season) COVID-19 Vaccine ( season) [facility] Start: 10-16-2022 Screening for malign ant neoplasm of breast Mammogram [facility] Start: 1996 DTaP,Tdap and Td Vaccines (1 - Tdap) DTaP,Tdap and Td Vaccines (1 - Tdap) [facility] Start: 1995 Adult BMI Follow Up Plan Adult BMI Follow Up Plan [facility] Start: 1995 Adult BMI Screening Adult BMI Screen ing [facility] Start: 1989 Depression Screening Depression Scre ening [facility] Start: 1977 Screening for malign ant neoplasm of colon [facility] End: 01-20-2025 Colonoscopy Colonoscopy GI Routine Encounter for screening colonoscopy 1 Occurrences starting 01/21/2024 until 01/20/2025 [facility] Work Phone: Comment on above: 1 Occurrences starti ng 01/21/2024 until 01/20/2025 Hysterectomy hysterectomy IN [facility] Lumbar spinal fusion lumbar spinal fusion IN [facility] Patient Education IN [facility] THIN PREP TIS PAP AN D HR HPV DNA THIN PREP TIS PAP AND HR HPV DNA Pathology and Cytology Routine Well woman exam with routine gynecological exam Ordered: 03/07/2025 [facility] Comment on above: Ordered: 03/07/2025 Immunizations Immunization Date Immunization Notes Care Provider [facility] 05-06-2022 influenza, injectabl e, quadrivalent, preservative free Veronica Sales MD Work Phone: [facility] 05-06-2022 influenza virus vaccine, unspecified formulation Veronica Sales MD Work Phone: [facility] 05-08-2021 influenza, injectabl e, quadrivalent, preservative free Veronica Sales MD Work Phone: [facility] 10-19-2020 SARS-COV-2 (COVID-19 ) vaccine, mRNA, spike protein, LNP, preservative free, 100 mcg/0.5mL dose Princess Lee [place] [facility] 09-19-2020 SARS-COV-2 (COVID-19 ) vaccine, mRNA, spike protein, LNP, preservative free, 100 mcg/0.5mL dose Princess Lee [place] [facility] 04-27-2020 influenza, injectabl e, quadrivalent, preservative free Veronica Sales MD Work Phone: [facility] 03-18-2018 influenza, injectabl e, quadrivalent, preservative free Veronica Sales MD Work Phone: [facility] 03-19-2017 influenza, injectabl e, quadrivalent, preservative free Veronica Sales MD Work Phone: [facility] 04-24-2016 influenza, seasonal, injectable, preservative free Veronica Sales MD Work Phone: [facility] 05-14-2015 influenza virus vaccine, whole virus Veronica Sales MD Work Phone: [facility] 05-09-2015 influenza, seasonal, injectable, preservative free Veronica Sales MD Work Phone: [facility] 05-05-2014 influenza virus vaccine, whole virus Veronica Sales MD Work Phone: [facility] Payers Date Payer Category Payer [facility] er [id number] 2021 Unknown [id number] 2019 Private Health Insurance [facility] [id number] 2018 Unknown [id number] 1977 Unknown [id number]. [id number] 1977 Unknown [id number] [id number]. 2.1285 1977 Unknown [id number] [id number]. 2.1258 1977 Unknown [id number]. 2.1258 1977 Unknown [id number]. 2.1258 1977 Unknown [id number] [id number]. 2.1258 1977 Unknown [id number]. 2.1258 1977 Unknown [id number] [id number]. 2.1258 1977 Unknown [id number] [id number]. 2.1258 1977 Unknown [id number] [id number]. 2.1258 1977 Unknown [id number] [id number] 1959 Unknown [id number] Social History Date Type Detail Facility Start: 06-05-2023 End: 06-30-2023 Tobacco smoking status NHIS Never smoked tobacco [facility] Start: 06-05-2023 End: 06-30-2023 Tobacco use and exposure Smokeless tobacco non-user [facility] Start: 06-30-2023 Alcohol intake Lifetime non-drinker (finding) [facility] Start: 06-29-2023 End: 06-02-2024 History of Social function [facility] Start: 06-29-2023 End: 06-02-2024 Humiliation, Afraid, Rape, and Kick questionnaire [HARK] [facility] Within the last year , have you been afraid of your partner or ex-partner? No [facility] Do you belong to any clubs or organizations such as yarsanism groups, unions, fraternal or athletic groups, or school groups? Yes [facility] Are you now , , , , never or living with a partner? [facility] How often to you hav e a drink containing alcohol? Monthly or less [facility] How many standard dr inks containing alcohol do you have on a typical day? 1 or 2 [facility] How often do you hav e 6 or more drinks on 1 occasion? Never [facility] How hard is it for y ou to pay for the very basics like food, housing, medical care, and heating Not hard at all [facility] Do you feel stress - tense, restless, nervous, or anxious, or unable to sleep at night because your mind is troubled all the time - these days [OSQ] To some extent [facility] (I/We) worried wheth er (my/our) food would run out before (I/we) got money to buy more. Never true [facility] Start: 1975 Sex Assigned At Female [facility] Start: 06-22-2023 Gender identity Identifies as female gender (finding) [facility] Start: 09-01-2023 End: 03-07-2025 Alcohol intake Current drinker of alcohol (finding) [facility] Start: 05-11-2024 Alcohol Comment Caffine: 1 cup daily [facility] Start: 06-05-2023 Alcohol Comment rarely [facility] Start: 1975 Sex assigned at Not on file [facility] Medical Equipment Procedure Code Equipment Code Equipment Original Text Equi pment Identifier Dates Procedure Implant ([id number]) Clinical Notes 10-26-2020 to 03-07-2025 NÉSTOR Johnson - 03/07/2025 10:00 AM EDTTelephone Encounter - Veronica Sales MD - 01/29/2025 9:36 PM EDTTelephone Encounter - Veronica Sales MD - 01/29/2025 9:36 PM EDT Note Date & Type Note Facility 03-07-2025 History of Presen t illness Narrative Reason for Appointment: Patient ID: Marilu Wisdom is a 49 y.o. female who presents for Gynecologic Exam Patient presents today for Annual Exam. MEDICATIONS Current Outpatient Medications Medication Instructions sertraline (ZOLOFT) 50 mg, Oral, Daily traZODone (DESYREL) 100 mg, Oral, Nightly valACYclovir (Valtrex) 500 MG tablet 2 times daily PRN ALLERGIES Allergies Allergen Reactions Ibuprofen Other Reaction(s): not allowed after bariatric surgery Naproxen Other Reaction(s): GI Disturbance Statins Other Reaction(s): muscle aches PROBLEMS Active Ambulatory Problems Diagnosis Date Noted History of hysterectomy 06/30/2023 Dyslipidemia 10/06/2019 Insomnia 06/30/2023 Mild depression 06/30/2023 Morbid obesity (CMS-HCC) 10/06/2019 Obesity, Class I, BMI 30-34.9 02/29/2020 DWIGHT (obstructive sleep apnea) 12/08/2019 Pure hypercholesterolemia 06/30/2023 Sinusitis 06/30/2023 Tension headache 06/30/2023 Resolved Ambulatory Problems Diagnosis Date Noted No Resolved Ambulatory Problems No Additional Past Medical History HISTORY PAST MEDICAL HISTORY SOCIAL HISTORY No past medical history on file. Social History Tobacco Use Smoking status: Never Smokeless tobacco: Never Vaping Use Vaping status: Never Used Substance Use Topics Alcohol use: Yes Alcohol/week: 1.0 standard drink of alcohol Types: 1 Cans of beer per week Comment: Caffine: 1 cup daily Drug use: Never FAMILY HISTORY Family History Problem Relation Name Age of Onset Arthritis Father Simón Adorno Early natural Father Simón Adorno Hyperlipidemia Father Simón Adorno Stroke Father Simón Adorno Cancer Maternal Grandmother Ruth Serna Cancer Paternal Grandfather Naseem Liangkit SURGICAL HISTORY Past Surgical History: Procedure Laterality Date BREAST SURGERY REDUCTION 2008 SECTION, LOW TRANSVERSE 2003, 2005 EYE SURGERY 2017 HYSTERECTOMY 2018 SPINE SURGERY 2016 TUBAL LIGATION 2004 REVIEW OF SYSTEMS Review of Systems: Review of Systems Constitutional: Negative. HENT: Negative. Eyes: Negative. Respiratory: Negative. Cardiovascular: Negative. Gastrointestinal: Negative. Genitourinary: Negative. Musculoskeletal: Negative. Skin: Negative. Neurological: Negative. All other systems reviewed and are negative. Hematological: Negative. Endocrine: Negative. Allergic/Immunologic: Negative. OBJECTIVE Objective: Physical Exam Constitutional: Appearance: Normal appearance. She is normal weight. HENT: Head: Normocephalic. Cardiovascular: Rate and Rhythm: Normal rate. Pulses: Normal pulses. Pulmonary: Effort: Pulmonary effort is normal. Breath sounds: Normal breath sounds. Abdominal: Palpations: Abdomen is soft. Musculoskeletal: General: Normal range of motion. Neurological: General: No focal deficit present. Mental Status: She is alert and oriented to person, place, and time. Psychiatric: Mood and Affect: Mood normal. Behavior: Behavior normal. Thought Content: Thought content normal. Judgment: Judgment normal. Vitals and nursing note reviewed. Vitals: Estimated body mass index is 28.38 kg/m as calculated from the following: Height as of 06/13/24: 5' 1 . Weight as of this encounter: 150 lb 3.2 oz. BP: 116/70 No LMP recorded. Patient has had a hysterectomy. ASSESSMENT & PLAN ICD-10-CM 1. Well woman exam with routine gynecological exam Z01.419 THIN PREP TIS PAP AND HR HPV DNA 2. Encounter for screening mammogram for breast cancer Z12.31 Bilateral screening mammogram Bilateral screening mammogram Annual: Patient presents today for an annual exam. Patient states she is doing well and has no complaints. Pap was obtained without difficulty and patient given mammogram order to have scheduled/obtained. Orders Placed This Encounter Procedures Bilateral screening mammogram Follow Up: Patient is to return in one year for annual unless needed otherwise. Documented by NÉSTOR Johnson on behalf of: NÉSTOR Johnson documented in this encounter [facility] 01-29-2025 Telephone encount er Note Refills sent. [facility] 01-29-2025 Telephone encount er Note Refills sent. [facility] 01-29-2025 Miscellaneous Notes Formattin g of this note might be different from the original. Refills sent. documented in this encounter [facility] 08-03-2024 Telephone encount er Note Refills sent. [facility] 08-03-2024 Miscellaneous Notes Formattin g of this note might be different from the original. Refills sent. documented in this encounter [facility] 06-13-2024 History of Presen t illness Narrative Images from the original note were not included. Berenice Wisdom is a 49 y.o. female presents with chief complaint of Cough (Follow up/) HPI: History of Present Illness Cough This is a recurrent problem. The current episode started more than 1 month ago. The problem has been gradually worsening. The problem occurs every few minutes. The cough is Productive of sputum. Associated symptoms include headaches and wheezing. The symptoms are aggravated by lying down. SUBJECTIVE: MEDICATIONS: Current Outpatient Medications Medication Instructions sertraline (Zoloft) 50 MG tablet TAKE 1 TABLET BY MOUTH EVERY DAY traZODone (DESYREL) 100 mg, Oral, Nightly valACYclovir (Valtrex) 500 MG tablet 2 times daily PRN REVIEW OF SYMPTOMS: Review of Systems Respiratory: Positive for cough and wheezing. Neurological: Positive for headaches. OBJECTIVE: Visit Vitals BP 120/80 (BP Location: Right arm, Patient Position: Sitting, BP Cuff Size: Adult) Pulse 81 Temp 98.6 F (Tympanic) Ht 5' 1 Wt 167 lb 12.8 oz SpO2 98% BMI 31.71 kg/m Smoking Status Never BSA 1.81 m Physical Exam Vitals reviewed. Constitutional: Appearance: Normal appearance. HENT: Head: Normocephalic and atraumatic. Right Ear: Tympanic membrane normal. Left Ear: Tympanic membrane normal. Nose: Mucosal edema present. Mouth/Throat: Mouth: Mucous membranes are moist. Pharynx: Oropharynx is clear. Eyes: Pupils: Pupils are equal, round, and reactive to light. Cardiovascular: Rate and Rhythm: Normal rate and regular rhythm. Pulses: Normal pulses. Heart sounds: Normal heart sounds. Pulmonary: Effort: Pulmonary effort is normal. Breath sounds: Normal breath sounds. Musculoskeletal: Cervical back: Normal range of motion and neck supple. Skin: General: Skin is warm and dry. Capillary Refill: Capillary refill takes less than 2 seconds. Findings: No rash. Neurological: General: No focal deficit present. Mental Status: She is alert and oriented to person, place, and time. ASSESSMENT AND PLAN: Assessment/Plan Diagnoses and all orders for this visit: Subacute cough - XR chest 2 views; Future - methylPREDNISolone (Medrol Dospak) 4 MG tablets; Follow schedule on package instructions - albuterol HFA 90 mcg/act inhaler; Inhale 2 puffs every 4 (four) hours if needed for wheezing -Obtain chest x-ray to check for pneumonia. Steroids and albuterol inhaler sent to pharmacy to cover for bronchitis. Will hold off on abx. Pending imaging results. documented in this encounter [facility] 06-02-2024 History of Presen t illness Narrative Images from the original note were not included. Berenice Wisdom is a 49 y.o. female presents with chief complaint of No chief complaint on file. HPI: Cough This is a recurrent problem. The current episode started more than 1 month ago. The problem has been gradually worsening. The problem occurs every few minutes. The cough is Productive of sputum. Associated symptoms include chills, ear congestion, ear pain, a fever, nasal congestion and a sore throat. Pertinent negatives include no chest pain, headaches, heartburn, hemoptysis, myalgias, postnasal drip, rash, rhinorrhea, shortness of breath, sweats, weight loss or wheezing. The symptoms are aggravated by lying down. History of Present Illness The patient presents for evaluation of a sore throat. She reports experiencing the most severe sore throat she has ever had as an adult. She recalls waking up in the middle of the night with a sore throat that has progressively worsened throughout the day. Despite taking ibuprofen, she finds no relief from the pain. She also mentions a persistent cough and reports having a fever today. She first noticed symptoms in the second week of March 2024, which led her to seek care at [facility]. She was informed that her condition was viral and was advised to take [id number] medication. However, by April 2024, her condition had not improved. She was then prescribed antibiotics, which she completed. She felt better for a week, but then her symptoms gradually returned. Additionally, she mentions that her children have been ill at school. SUBJECTIVE: MEDICATIONS: Current Outpatient Medications Medication Instructions sertraline (Zoloft) 50 MG tablet TAKE 1 TABLET BY MOUTH EVERY DAY traZODone (DESYREL) 100 mg, Oral, Nightly I have reviewed and reconciled the history and medication list with the patient today. REVIEW OF SYMPTOMS: Review of Systems Constitutional: Positive for appetite change, chills and fever. Negative for weight loss. HENT: Positive for congestion, ear pain and sore throat. Negative for postnasal drip and rhinorrhea. Respiratory: Positive for cough. Negative for hemoptysis, shortness of breath and wheezing. Cardiovascular: Negative for chest pain. Gastrointestinal: Negative for heartburn. Musculoskeletal: Negative for myalgias. Skin: Negative for rash. Neurological: Negative for headaches. OBJECTIVE: Visit Vitals BP 128/80 Pulse 95 Temp 99.1 F Ht 5' 1 Wt 166 lb 12.8 oz SpO2 98% BMI 31.52 kg/m Smoking Status Never BSA 1.8 m Physical Exam Vitals and nursing note reviewed. Constitutional: Appearance: Normal appearance. HENT: Head: Normocephalic and atraumatic. Right Ear: Tympanic membrane normal. Left Ear: Tympanic membrane normal. Nose: Nose normal. Mouth/Throat: Pharynx: Posterior oropharyngeal erythema present. Cardiovascular: Rate and Rhythm: Normal rate and regular rhythm. Pulses: Normal pulses. Heart sounds: Normal heart sounds. Pulmonary: Effort: Pulmonary effort is normal. Breath sounds: Normal breath sounds. Musculoskeletal: Cervical back: Normal range of motion and neck supple. Neurological: Mental Status: She is alert. Psychiatric: Mood and Affect: Mood normal. ASSESSMENT AND PLAN: Assessment/Plan Problem List Items Addressed This Visit None Visit Diagnoses Strep pharyngitis - Primary Relevant Medications amoxicillin (Amoxil) 500 MG capsule Other Relevant Orders STREP DNA PROBE (Completed) documented in this encounter [facility] 05-11-2024 History of Presen t illness Narrative Images from the original note were not included. Berenice Wisdom is a 49 y.o. female presents with chief complaint of URI HPI: Patient is having sx of cough, chills, achiness, congestion, green/red phelgm, and right plugged ear that started Thursday. 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 Has been using ibuprofen and delsym cough medication. URI This is a new problem. The current episode started in the past 7 days. The problem has been gradually worsening. There has been no fever. Associated symptoms include congestion, coughing, headaches, a plugged ear sensation, sinus pain, sneezing and wheezing. Pertinent negatives include no abdominal pain, chest pain, diarrhea, dysuria, ear pain, joint pain, joint swelling, nausea, neck pain, sore throat or vomiting. She has tried NSAIDs, decongestant and increased fluids for the symptoms. The treatment provided no relief. SUBJECTIVE: MEDICATIONS: ALLERGIES Current Outpatient Medications Medication Instructions sertraline (Zoloft) 50 MG tablet TAKE 1 TABLET BY MOUTH EVERY DAY traZODone (DESYREL) 100 mg, Oral, Nightly Allergies Allergen Reactions Ibuprofen Other Reaction(s): not allowed after bariatric surgery Naproxen Other Reaction(s): GI Disturbance Statins Other Reaction(s): muscle aches PAST MEDICAL HISTORY: SOCIAL HISTORY SURGICAL HISTORY: History reviewed. No pertinent past medical history. Social History Tobacco Use Smoking status: Never Smokeless tobacco: Never Substance Use Topics Alcohol use: Yes Alcohol/week: 1.0 standard drink of alcohol Types: 1 Cans of beer per week Comment: Caffine: 1 cup daily Drug use: Never Past Surgical History: Procedure Laterality Date SECTION, LOW TRANSVERSE 2003, 2005 EYE SURGERY 2017 HYSTERECTOMY 2018 SPINE SURGERY 2016 TUBAL LIGATION 2005 REVIEW OF SYMPTOMS: Review of Systems Constitutional: Positive for chills. Negative for fever. HENT: Positive for congestion, sinus pressure, sinus pain and sneezing. Negative for ear pain, postnasal drip and sore throat. Respiratory: Positive for cough and wheezing. Cardiovascular: Negative for chest pain. Gastrointestinal: Negative for abdominal pain, diarrhea, nausea and vomiting. Genitourinary: Negative for dysuria. Musculoskeletal: Negative for joint pain and neck pain. Neurological: Positive for headaches. All other systems reviewed and are negative. OBJECTIVE: Visit Vitals BP 112/82 Pulse 67 Temp 96.2 F Wt 168 lb 3.2 oz SpO2 98% BMI 31.78 kg/m Smoking Status Never BSA 1.81 m Physical Exam Vitals reviewed. Constitutional: Appearance: Normal appearance. HENT: Head: Normocephalic and atraumatic. Right Ear: A middle ear effusion is present. Tympanic membrane is injected. Left Ear: A middle ear effusion is present. Nose: Congestion and rhinorrhea present. Rhinorrhea is clear. Right Turbinates: Swollen. Left Turbinates: Swollen. Mouth/Throat: Mouth: Mucous membranes are moist. Comments: PND Eyes: Pupils: Pupils are equal, round, and reactive to light. Cardiovascular: Rate and Rhythm: Normal rate and regular rhythm. Pulses: Normal pulses. Heart sounds: Normal heart sounds. Pulmonary: Effort: Pulmonary effort is normal. Breath sounds: Normal breath sounds. Musculoskeletal: Cervical back: Normal range of motion and neck supple. Skin: General: Skin is warm and dry. Capillary Refill: Capillary refill takes less than 2 seconds. Findings: No rash. Neurological: General: No focal deficit present. Mental Status: She is alert and oriented to person, place, and time. ASSESSMENT AND PLAN: Assessment/Plan Diagnoses and all orders for this visit: Nasal congestion - STATUS COVID-19/FLU Acute non-recurrent pansinusitis - doxycycline (Vibra-Tabs) 100 MG tablet; Take 1 tablet (100 mg) by mouth in the morning and 1 tablet (100 mg) before bedtime. Do all this for 10 days. Take with a full glass of water and do not lie down for at least 30 minutes after.. -Take antibiotics as prescribed, do not stop early. May take tylenol/motrin OTC prn for pain/fever. Increase oral intake of fluids to thin secretions. Saline nasal spray. Antihistamines to dry up secretions. Humidified air. If symptoms do not improve in 48 hrs after starting antibiotics instructed patient to come to office for further evaluation. documented in this encounter [facility] 01-25-2024 History general Narrative - Reported No medical history recorded. Gynecological History Date of Last Colonoscopy 01/25/2024 Sexually Active? Y Obstetrics History GPAL:G 2 P 0 0 0 2 Type Value Multiple Births 0 Full Term 0 Induced 0 Spontaneous 0 Premature 0 Living 2 Ectopics 0 Total [facility]* Perioperative Nursing Note - Mulu Silver RN - 01/22/2024 10:26 AM EDT Preoperative Education Checklist- General Surgery date: 01/25/24 Surgery time: 1245p Arrival time: 1045a 1. Bring a photo ID and your insurance card with you the day of surgery. You will check in at the main lobby of the [facility]- registration desk is straight ahead as soon as you walk in. Tell them you are here for surgery. 2. If you have a Living Will/Durable Power of Automobile Lights Assembler for Health Care that is not on file here, please bring a copy the day of surgery. 3. Please shower/bathe the night before surgery with the provided soap or wipes. Do not shower the morning of surgery- you will do use wipes when you arrive here at the hospital before getting into your surgical gown. Do not shave the area of your procedure for 2 days prior to your surgery. 4. NO powder, lotion, perfume/cologne, aftershave, make-up, deodorant, or hair products after you have bathed. 5. NO nail botswanan/acrylic on at least one finger. If you are having a hand, wrist or foot surgery then all nail botswanan and artificial/acrylic nails must be removed from that hand or foot. 6. Avoid ALL Aspirin and non-steroidal anti-inflammatory drugs and certain vitamins (Ibuprofen, Advil, Aleve, Excedrin, Meloxicam, Celebrex, fish/krill oil, etc.) for 7 days prior to surgery as instructed by your surgeon and/or your prescribing doctor. Tylenol IS ALLOWED. If you are on Ticlid, Xarelto, Eliquis, Pradaxa, Plavix or Coumadin, please check with your prescribing doctor for instructions for when to stop them. 7. If you use an inhaler, continue to use it routinely. 8. Nothing to eat or drink (not even water, gum, mints, or hard candy!) AFTER midnight prior to your surgery. 9. Take only medications that you are instructed to on the morning of surgery with a TINY SIP OF WATER. 10. Choose a responsible adult that will be able to drive you home when you are discharged from your hospital stay for your surgery and can stay with you in your home for 24 hours after your procedure. You must NOT drive any vehicle or operate any machinery for 24 hours after surgery. 11. When you dress for your appointment, please wear loose fitting clothing that is appropriate to accommodate your surgical area procedure. BRING WITH YOU ANY DEVICES YOU MAY NEED: NESTOR hose, ice machine, sling/swath, brace or special shoe, oversized zip-up or button up shirt, CPAP machine if staying overnight. 12. Do NOT wear jewelry, watches, or any piercings or metal for surgery- leave these valuables and money at home. 13. Do NOT wear contact lenses for surgery- glasses are okay if needed. 14. The anesthesiologist will talk with you the day of surgery and will ask you to sign a Consent Form. 15. Refrain from smoking or any type of tobacco use for at least 8 hours and marijuana for 24 hoursprior to arrival for your surgery. 16. If a GREEN BLOOD band is given to you, please bring it with you for the day of surgery. 17. Notify your surgeon if you develop any illness before your surgery. 18. If you are staying overnight, please DO NOT BRING your home medications with you. 19. If you have any questions prior to surgery, please call the Preadmission Testing office at [phone], Mon.-Fri. 7 a.m.-3 p.m. Leave a voicemail if needed. Pre-Surgery Instructions: Medication Instructions sertraline (ZOLOFT) 50 mg tablet Stop taking 0 days prior to procedure traZODone (DESYREL) 100 mg tablet Stop taking 0 days prior to procedure sod sulf-pot chloride-mag sulf 1.479-0.188- 0.225 gram tablet Check with prescribing doctor for instructions [facility]06-28-2024 Miscellaneous Notes* Perioperative Nursing Note - Mulu Silver RN - 01/22/2024 10:26 AM EDT Preoperative Education Checklist- General Surgery date: 01/25/24 Surgery time: 1245p Arrival time: 1045a 1. Bring a photo ID and your insurance card with you the day of surgery. You will check in at the main lobby of the [facility]- registration desk is straight ahead as soon as you walk in. Tell them you are here for surgery. 2. If you have a Living Will/Durable Power of Automobile Lights Assembler for Health Care that is not on file here, please bring a copy the day of surgery. 3. Please shower/bathe the night before surgery with the provided soap or wipes. Do not shower the morning of surgery- you will do use wipes when you arrive here at the hospital before getting into your surgical gown. Do not shave the area of your procedure for 2 days prior to your surgery. 4. NO powder, lotion, perfume/cologne, aftershave, make-up, deodorant, or hair products after you have bathed. 5. NO nail botswanan/acrylic on at least one finger. If you are having a hand, wrist or foot surgery then all nail b[place]an and artificial/acrylic nails must be removed from that hand or foot. 6. Avoid ALL Aspirin and non-steroidal anti-inflammatory drugs and certain vitamins (Ibuprofen, Advil, Aleve, Excedrin, Meloxicam, Celebrex, fish/krill oil, etc.) for 7 days prior to surgery as instructed by your surgeon and/or your prescribing doctor. Tylenol IS ALLOWED. If you are on Ticlid, Xarelto, Eliquis, Pradaxa, Plavix or Coumadin, please check with your prescribing doctor for instructions for when to stop them. 7. If you use an inhaler, continue to use it routinely. 8. Nothing to eat or drink (not even water, gum, mints, or hard candy!) AFTER midnight prior to your surgery. 9. Take only medications that you are instructed to on the morning of surgery with a TINY SIP OF WATER. 10. Choose a responsible adult that will be able to drive you home when you are discharged from your hospital stay for your surgery and can stay with you in your home for 24 hours after your procedure. You must NOT drive any vehicle or operate any machinery for 24 hours after surgery. 11. When you dress for your appointment, please wear loose fitting clothing that is appropriate to accommodate your surgical area procedure. BRING WITH YOU ANY DEVICES YOU MAY NEED: NESTOR hose, ice machine, sling/swath, brace or special shoe, oversized zip-up or button up shirt, CPAP machine if staying overnight. 12. Do NOT wear jewelry, watches, or any piercings or metal for surgery- leave these valuables and money at home. 13. Do NOT wear contact lenses for surgery- glasses are okay if needed. 14. The anesthesiologist will talk with you the day of surgery and will ask you to sign a Consent Form. 15. Refrain from smoking or any type of tobacco use for at least 8 hours and marijuana for 24 hoursprior to arrival for your surgery. 16. If a GREEN BLOOD band is given to you, please bring it with you for the day of surgery. 17. Notify your surgeon if you develop any illness before your surgery. 18. If you are staying overnight, please DO NOT BRING your home medications with you. 19. If you have any questions prior to surgery, please call the Preadmission Testing office at [phone], Mon.-Fri. 7 a.m.-3 p.m. Leave a voicemail if needed. Pre-Surgery Instructions: Medication Instructions sertraline (ZOLOFT) 50 mg tablet Stop taking 0 days prior to procedure traZODone (DESYREL) 100 mg tablet Stop taking 0 days prior to procedure sod sulf-pot chloride-mag sulf 1.479-0.188- 0.225 gram tablet Check with prescribing doctor for instructions [facility] of Present illness Narrative* My Emmanuel, SINTER MACHINE OPERATOR-SALES OPERATIONS ASSISTANT - 01/21/2024 2:30 PM EDT Chief Complaint: Colon cancer screening History of Present Illness Berenice Wisdom is a 48 y.o. female who presents to the office for colon cancer screening. This isher first colonoscopy. She denies diarrhea, constipation, abdominal pain, melena, hematochezia, unexplained weight loss. There is no family history of colon cancer. Review of Systems Constitutional: Negative for fever and unexpected weight change. HENT: Negative for trouble swallowing. Respiratory: Negative for shortness of breath. Cardiovascular: Negative for chest pain. Gastrointestinal: Negative for nausea, vomiting, abdominal pain, diarrhea, constipation, blood in stool and black tarry stool. Genitourinary: Negative for dysuria and difficulty urinating. Musculoskeletal: Negative for gait problem. Skin: Negative for rash and wound. Neurological: Negative for dizziness, weakness and light-headedness. Hematological: Does not bruise/bleed easily. Psychiatric/Behavioral: Negative for confusion. Past Medical History: Diagnosis Date Anxiety Varicella As a child Past Surgical History: Procedure Laterality Date BREAST SURGERY 2005 Breast reduction SECTION 2002 and 2004 EYE SURGERY 2017 Lasik HYSTERECTOMY 2018 LAPAROSCOPIC GASTRIC SURGERY LUMBAR FUSION 2016 TUBAL LIGATION 2004 Allergies Allergen Reactions Naproxen GI Disturbance Current Outpatient Medications: sertraline (ZOLOFT) 50 mg tablet, Take 1 tablet (50 mg total) by mouth in the morning., Disp: , Rfl: traZODone (DESYREL) 100 mg tablet, Take 1 tablet (100 mg total) by mouth nightly., Disp: , Rfl: sod sulf-pot chloride-mag sulf 1.479-0.188- 0.225 gram tablet, Please see instructional sheet givenby physicians office., Disp: 24 tablet, Rfl: 0 Social History Socioeconomic History Marital status: Spouse name: Not on file Number of children: Not on file Years of education: Not on file Highest education level: Not on file Occupational History Not on file Tobacco Use Smoking status: Never Smokeless tobacco: Never Vaping Use Vaping status: Never Used Substance and Sexual Activity Alcohol use: Yes Comment: rarely Drug use: Never Sexual activity: Yes Partners: Male control/protection: Surgical Comment: Hysterectomy Other Topics Concern Not on file Social History Narrative Not on file Social Determinants of Health Financial Resource Strain: Low Risk (06/29/2023) Received from [facility] Overall Financial Resource Strain (CARDIA) Difficulty of Paying Living Expenses: Not hard at all Food Insecurity: No Food Insecurity (06/29/2023) Received from [facility] Hunger Vital Sign Worried About Running Out of Food in the Last Year: Never true Ran Out of Food in the Last Year: Never true Transportation Needs: No Transportation Needs (06/29/2023) Received from [facility] PRAPARE - Transportation Lack of Transportation (Medical): No Lack of Transportation (Non-Medical): No Physical Activity: Insufficiently Active (06/29/2023) Received from [facility] Exercise Vital Sign Days of Exercise per Week: 3 days Minutes of Exercise per Session: 20 min Stress: Stress Concern Present (06/29/2023) Received from [facility] [employer] - Occupational Stress Questionnaire Feeling of Stress : To some extent Social Connections: Moderately Integrated (06/29/2023) Received from [facility] Social Connection and Isolation Panel [NHANES] Frequency of Communication with Friends and Family: More than three times a week Frequency of Social Gatherings with Friends and Family: More than three times a week Attends Christianity Services: Never Active Member of Clubs or Organizations: Yes Attends Club or Organization Meetings: More than 4 times per year Marital Status: Interpersonal Safety: Not At Risk (06/29/2023) Received from [facility] Humiliation, Afraid, Rape, and Kick questionnaire Fear of Current or Ex-Partner: No Emotionally Abused: No Physically Abused: No Sexually Abused: No Housing Instability: Low Risk (06/29/2023) Received from [facility] Housing Stability Vital Sign Unable to Pay for Housing in the Last Year: No Number of Places Lived in the Last Year: 1 Unstable Housing in the Last Year: No Family History Problem Relation Age of Onset Rheum arthritis Father Stroke Father Objective Physical Exam Constitutional: General: She is not in acute distress. Appearance: Normal appearance. She is not ill-appearing. HENT: Head: Normocephalic and atraumatic. Mouth/Throat: Mouth: Mucous membranes are moist. Eyes: Pupils: Pupils are equal, round, and reactive to light. Cardiovascular: Rate and Rhythm: Normal rate. Pulmonary: Effort: Pulmonary effort is normal. No respiratory distress. Abdominal: General: There is no distension. Palpations: Abdomen is soft. Tenderness: There is no abdominal tenderness. Musculoskeletal: General: Normal range of motion. Skin: General: Skin is warm and dry. Neurological: Mental Status: She is alert and oriented to person, place, and time. Mental status is at baseline. Vital Signs: Blood pressure 131/80, pulse 67, weight 75.4 kg (166 lb 3.2 oz). Respiratory Source: No data recorded Admission Weight: Weight: 75.4 kg (166 lb 3.2 oz) Labs Lab Results Component Value Date WBC 6.8 06/05/2023 HGB 13.0 06/05/2023 HCT 37.7 06/05/2023 MCV 85 06/05/2023 PLT 276 06/05/2023 Lab Results Component Value Date GLU 89 06/05/2023 CALCIUM 9.3 06/05/2023 K 3.8 06/05/2023 CO2 25 06/05/2023 CL 104 06/05/2023 BUN 17 06/05/2023 CREATININE 0.71 06/05/2023 No results found for: AMYLASE No results found for: LIPASE No results found for: ALT , AST , GGT , ALKPHOS , LABBILI No results found for: INR , PROTIME Assessment Berenice Wisdom is a 48 y.o.female who presents to the office for screening colonoscopy. Plan Colonoscopy with possible biopsy and/or polypectomy. Risks, benefits, and alternatives discussed with patient. Educated on bowel evacuation preparation. Patient verbalizes understanding and wishes toproceed. Evaluation included: Preparing to see the patient (e.g., review of tests) Obtaining and/or reviewing separately obtained history Performing a medically appropriate examination and/or evaluation Counseling and educating the patient/family/caregiver Referring and communicating with other health respiratory care instructor Encounter for screening colonoscopy [Z12.11] MY EMMANUEL APRN-SALES OPERATIONS ASSISTANT [facility] [place] This note was created with the assistance of a speech recognition program. While intending to generate a timely document that accurately reflects the content of the visit, no guarantee can be provided that every grammatical or spelling mistake has been or will be identified or corrected. Thank you for your understanding. My Emmanuel APRN-SALES OPERATIONS ASSISTANT 01/21/24 1445 [facility] Telephone encounter Note* Telephone Encounter - Veronica Sales MD - 09/07/2023 11:33 AM EST Refills sent. [facility] [id number] Miscellaneous Notes* Telephone Encounter - Veronica Sales MD - 09/07/2023 11:33 AM EST Refills sent. documented in this encounterFreeman Health [id number] History of Present illness Narrative* Veronica Sales MD - 09/01/2023 4:00 PM EST Berenice Wisdom is a 48 y.o. female presents with chief complaint of Anxiety HPI: HPI Patient presents today for a follow up on anxiety, pt states she has been taking the zoloft and thehydroxzine. She wonders if she still needs to be on it. She states she has not had any palpitationssince starting the medication. But did mention about how her mom was selling there house and her grandma recently just , she was wondering if that was playing into factor with the palpitations/ anxiety. She also has dry skin on her face and wondering if that could be a side effect from that. SUBJECTIVE: MEDICATIONS: Current Outpatient Medications Medication Instructions calcium carbonate (Os-Arnoldo) 1250 (500 Ca) MG tablet Every 12 hours hydrOXYzine HCl (ATARAX) 25 mg, Oral, Every 6 hours PRN sertraline (Zoloft) 50 MG tablet TAKE 1/2 TABLET BY MOUTH IN THE MORNING FOR THE FIRST WEEK, THEN INCREASE TO 1 TAB ONCE DAILY traZODone (DESYREL) 100 mg, Oral, Nightly REVIEW OF SYMPTOMS: Review of Systems OBJECTIVE: Visit Vitals BP 102/60 Pulse 69 Ht 5' 1 Wt 163 lb 12.8 oz SpO2 98% BMI 30.95 kg/m Smoking Status Never BSA 1.79 m Physical Exam Vitals and nursing note reviewed. Constitutional: Appearance: Normal appearance. Cardiovascular: Rate and Rhythm: Normal rate and regular rhythm. Pulses: Normal pulses. Heart sounds: Normal heart sounds. Pulmonary: Effort: Pulmonary effort is normal. Breath sounds: Normal breath sounds. Musculoskeletal: Cervical back: Normal range of motion and neck supple. Skin: General: Skin is warm and dry. Comments: Dry/atopic on face. Neurological: Mental Status: She is alert. ASSESSMENT AND PLAN: Assessment/Plan Problem List Items Addressed This Visit None Visit Diagnoses Palpitations - Primary These have resolved with zoloft. Will plan to continue zoloft for a few months. If her symptoms have stayed gone, she can then start to wean from the zoloft. She can continue to use the hydroxyzine prn. She has only used a couple of those. For the dryness caused by zoloft, he will continue to moisturize and also ok to use hydrocortisone if worsens. Cautioned about SE of the cortisone. Anxiety Relevant Medications sertraline (Zoloft) 50 MG tablet documented in this encounterFreeman Health [id number] NoteHNO ID: [id number] Author: Vinnie Leija Service: ? Author Type: ? Type: Progress Notes Filed: 10/26/2020 2:58 PM Note Text: CMN RECEIVED BY [employer] VIA FAX, COMPLETED, AND PLACED IN PROVIDER MAILBOX FOR SIGNATURE [employer] SENDING CMN: [employer] SIGNED AND DATED CMN, FAXED TO [facility] AND CONFIRMATION PAGE RECEIVED: [facility] Palpitations- Primary Anxiety Anxiety state, unspecified documented in this encounter [facility]* Diagnosis Primary insomnia- Primary Persistent disorder of initiating or maintaining sleep documented in this encounter [facility]* Diagnosis Nasal congestion- Primary Other diseases of nasal cavity and sinuses Acute non-recurrent pansinusitis documented in this encounter [facility]* Diagnosis Strep pharyngitis- Primary [facility] Diagnosis Subacute cough- Primary Subacute cough [facility]* Diagnosis Anxiety Anxiety state, unspecified [facility]* Diagnosis Primary insomnia Persistent disorder of initiating or maintaining sleep [facility]* Diagnosis Encounter for screening colonoscopy- Primary Screen for colon cancer Special screening for malignant neoplasms, colon documented [facility] No assessment recorded. [place] - [facility] note* Diagnosis Anxiety Anxiety state, unspecified [facility]* Diagnosis Well woman exam with routine gynecological exam Routine gynecological examination Encounter for screening mammogram for breast cancer documented in this encounter [facility] HealthcareInstructionsNot on filedocumented in this encounterProBrecksville [facility] SystemInstructionsNot on filedocumented in this encounterProBrecksville [facility] Summary Purpose Family History Relationship Description Onset Age of this Age Resolved Age Notes LastModified by Organization Details LastModified Time Paternal Grandmother Coronary atherosclero sis diagno sed with Merino ry athero sclero sisRel ative: 'Pater nal G M'; [email or web address] Not available 05/01/2024 04:41:34 Father Hyperlipidem ia diagno sed with Hyperl ipidem ia [email or web address] Not available 05/01/2024 04:41:34 Notes:*Relative: Paternal Gr andmother*Problem: 91 yrsRelative: 'Paternal G M'; *Relative: Maternal Grandfather*Problem: alive, lung cancerRelative: 'Maternal G F'; *Relative: Mother*Problem: alive 63 yrs *Relative: Son*Problem: aliveRelative: 'Son(s)'; *Relative: Sister*Problem: alive 41 yrsRelative: 'Sister 1'; *Relative: Father*Problem: 61 yrs, heart attack 2018 , rheumatoid arthritis *Relative: Maternal Grandmother*Problem: alive, Brain Cancer *Relative: Unspecified Relation*Problem: 1 sisters(s) - healthy 2 sons(s) - healthy Advance Directives No Advanced Directives Records FoundNo Advanced Directives Records FoundNo Advanced Directives Records FoundNo Advanced Directives Records FoundNo Advanced Directives Records FoundNo Advanced Directives Records FoundNo Advanced Directives Records Found Hospital Course Note HNO ID: [id number] Author: Jodi Vega (Pa) Service: General Surgery Author Type: Physician Tree Doctor Type: Discharge Summary Filed: 02/22/2020 2:00 PM Note Text: Attestation signed by Carlos Enrique Valencia at 02/24/2020 9:15 AM Attending Note I have personally performed a face to face assessment of the patient and have reviewed the PA/HEAT TREAT TECHNICIAN note. My trejo findings include: Uncomplicated stay for laparoscopic sleeve gastrectomy. Signature: Carlos Enrique Valencia MD Date: 02/24/2020 Time: 9:15 AM DISCHARGE SUMMARY PATIENT NAME: Berenice Wisdom ADMISSION DATE: 02/21/2020 DISCHARGE DATE: 02/22/2020 ATTENDING PHYSICIAN: Carlos Enrique Valencia Code Status: Not on file Highest Readmission Risk Score: 7 The 30 day readmissions risk score is derived from an internally validated risk model which evaluates patient level characteristics, utili (more content not included)... Note HNO ID: [id number] Author: Mario astudillo (Yoanna) [facility] Service: ? Author Type: Supervisor Train Operations Type: Anesthesia Procedure Notes Filed: 02/21/2020 1:12 PM Note Text: ANESTHESIOLOGY PROCEDURE NOTE Airway General Information Procedure Start Time/Medication Administration: 02/21/2020 12:57 PM Patient location during procedure: ORTimeout Performed Pre-procedure: timeout performed Consent Obtained: Yes Patient identity confirmed: arm band Staffing Anesthesiologist: Bryan James MD CAA Student: Edward (Student) Susanna Performed by: CRIS yarbrough Indications and Patient Condition Preoxygenated: yes Patient position: sniffing Difficult Mask: No Indications for airway management: anesthesia anesthesia circuit Method: asleep Final Airway Details Final airway type: endotracheal airway Final Endotracheal Airway: ETT Cuffed: yes Successful intubation technique: direct laryngoscopy Devices used: intubating stylet Endotracheal tube insertion site: oral Blade: Azul Blade size: #3 ETT size (mm): 7.0 M (more content not included)... Note HNO ID: [id number] Author: Prosper Alicea DO Service: General Surgery Author Type: Resident Type: Brief Op Note Filed: 02/21/2020 2:05 PM Note Text: BRIEF OPERATIVE / PROCEDURE NOTE LOG ID: [id number] SURGERY/PROCEDURE DATE: 02/21/2020 INCISION/PROCEDURE START TIME: 1:07 PM INCISION CLOSE/PROCEDURE END TIME: 1:59 PM SURGEON(S)/PROCEDURALIST(S) AND TRANSFER CAR OPERATOR DRIER(S): Surgeon(s) and Role: * Carlos Enrique Valencia - Primary * Bryan Alicea DO - Resident - Assisting * Lorrie Quinones (Fel) - Fellow No Additional Staff SURGERY/PROCEDURE(S): Laparoscopic Sleeve gastrectomy and EGD ANESTHESIA: General FINDINGS: Sleeve gastrectomy, venous congestion noted on posterior portion of spleen 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 EGD with good linear staple line ESTIMATED BLOOD LOSS: .10 mls SPECIMENS: Portion of stomach COMPLICATIONS: None Wound Class 2: Clean contaminated PRE-OP/PRE-PROCEDURE DIAGNOSIS: Obestiy POST-OP/POST-PROCEDURE DIAGNOSIS: Same as Preop SIGNATURE: Bryan Alicea (more content not included)... Procedure Findings Note HNO ID: [id number] Author: Mario astudillo (Yoanna) [facility] Service: ? Author Type: Supervisor Train Operations Type: Anesthesia Procedure Notes Filed: 02/21/2020 1:12 PM Note Text: ANESTHESIOLOGY PROCEDURE NOTE Airway General Information Procedure Start Time/Medication Administration: 02/21/2020 12:57 PM Patient location during procedure: ORTimeout Performed Pre-procedure: timeout performed Consent Obtained: Yes Patient identity confirmed: arm band Staffing Anesthesiologist: MD CRIS oBwman Student: Edward (Student) Mullins Performed by: CAA student Indications and Patient Condition Preoxygenated: yes Patient position: sniffing Difficult Mask: No Indications for airway management: anesthesia anesthesia circuit Method: asleep Final Airway Details Final airway type: endotracheal airway Final Endotracheal Airway: ETT Cuffed: yes Successful intubation technique: direct laryngoscopy Devices used: intubating stylet Endotracheal tube insertion site: oral Blade: Azul Blade size: #3 ETT size (mm): 7.0 M (more content not included)... Note HNO ID: [id number] Author: Prosper Alicea DO Service: General Surgery Author Type: Resident Type: Brief Op Note Filed: 02/21/2020 2:05 PM Note Text: BRIEF OPERATIVE / PROCEDURE NOTE LOG ID: [id number] SURGERY/PROCEDURE DATE: 02/21/2020 INCISION/PROCEDURE START TIME: 1:07 PM INCISION CLOSE/PROCEDURE END TIME: 1:59 PM SURGEON(S)/PROCEDURALIST(S) AND TRANSFER CAR OPERATOR DRIER(S): Surgeon(s) and Role: * Carlos Enrique Valencia - Primary * Bryan Alicea DO - Resident - Assisting * Lorrie Quinones (Fel) - Fellow No Additional Staff SURGERY/PROCEDURE(S): Laparoscopic Sleeve gastrectomy and EGD ANESTHESIA: General FINDINGS: Sleeve gastrectomy, venous congestion noted on posterior portion of spleen 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 EGD with good linear staple line ESTIMATED BLOOD LOSS: .10 mls SPECIMENS: Portion of stomach COMPLICATIONS: None Wound Class 2: Clean contaminated PRE-OP/PRE-PROCEDURE DIAGNOSIS: Obestiy POST-OP/POST-PROCEDURE DIAGNOSIS: Same as Preop SIGNATURE: Bryan Alicea (more content not included)... Additional Source Comments INFORMATION SOURCE (unrecogn ized section and content) DATE CREATED AUTHOR 02/24/2020 [facility] DATE CREATED AUTHOR AUTHOR'S ORGANIZ ATION 09/08/2021 [facility] DATE CREATED AUTHOR AUTHOR'S ORGANIZ ATION 01/07/2022 [facility] dical Specialist DATE CREATED AUTHOR AUTHOR'S ORGANIZ ATION 10/24/2022 [facility] DATE CREATED AUTHOR AUTHOR'S ORGANIZ ATION 01/23/2024 [facility] DATE CREATED AUTHOR AUTHOR'S ORGANIZ ATION 06/20/2024 [facility] dical Specialists EPIC DATE CREATED AUTHOR AUTHOR'S ORGANIZ ATION 02/08/2025 [facility] Care Teams (unrecognized sec tion and content) Air Brake Mechanic Relationship Specialty Start Date End Date Veronica Sales MD [address] [place] [address] PCP - General Family Medicine 12/02/22 Air Brake Mechanic Relationship Specialty Start Date End Date Veronica Sales MD [address] [place] [address] PCP - General Family Medicine 12/02/22 Air Brake Mechanic Relationship Specialty Start Date End Date Veronica Sales MD [address] [place] [address] PCP - General Family Medicine 12/02/22 Air Brake Mechanic Relationship Specialty Start Date End Date Veronica Sales MD [address] [place] [address] PCP - General Family Medicine 12/02/22 Veronica Sales MD [address] [place] [address] PCP - [employer] 09/25/23 Air Brake Mechanic Relationship Specialty Start Date End Date Veronica Sales MD [address] [place] [address] PCP - General Family Medicine 12/02/22 Veronica Sales MD [address] [place] [address] PCP - [employer] 09/25/23 Air Brake Mechanic Relationship Specialty Start Date End Date Veronica Sales MD [address] [place] [address] PCP - General Family Medicine 12/02/22 Veronica Sales MD [address] [place] [address] PCP - [employer] 09/25/23 Air Brake Mechanic Relationship Specialty Start Date End Date Veronica Sales MD [address] [place] [address] PCP - General Family Medicine 12/02/22 Veronica Sales MD [address] [place] [address] PCP - [employer] 09/25/23 Air Brake Mechanic Relationship Specialty Start Date End Date Veronica Sales MD [address] [place] [address] PCP - General Family Medicine 12/02/22 Veronica Sales MD [address] [place] [address] PCP - [employer] 09/25/23 Air Brake Mechanic Relationship Specialty Start Date End Date Veronica Sales MD [address] [place] [address] PCP - General Family Medicine 12/02/22 Veronica Sales MD [address] [place] [address] PCP - [employer] 09/25/23 Air Brake Mechanic Relationship Specialty Start Date End Date Princess Lee, SINTER MACHINE OPERATOR-SALES OPERATIONS ASSISTANT [address], [address] [place] [address] PCP - General Nurse Practitioner 01/19/24 Air Brake Mechanic Relationship Specialty Start Date End Date Princess Lee APRN-SALES OPERATIONS ASSISTANT [address], [address] [place] [address] PCP - General Nurse Practitioner 01/19/24 Air Brake Mechanic Relationship Specialty Start Date End Date Veronica Sales MD [address] [facility] [place] [address] PCP - General Family Medicine 12/02/22 Veronica Sales MD [address] [place] [address] PCP - [employer] 09/25/23 Air Brake Mechanic Relationship Specialty Start Date End Date Veronica Sales MD [address] [facility] [place] [address] PCP - General Family Medicine 12/02/22 Veronica Sales MD [address] [place] [address] PCP - [employer] 09/25/23 Reason for Visit (unrecogniz ed section and content) Reason Comments Anxiety Reason Comments Med Refill Reason Comments URI Reason Comments Cough Follow up Reason Onset Date Comments Med Refill 08/03/2024 Reason Comments Colon Cancer Screening First colon Reason Comments Gynecologic Exam FOR RECORDS PERTAINING TO PATIENTS WHO ARE OR HAVE BEEN ENROLLED IN A CHEMICAL DEPENDENCY/SUBSTANCEABUSE PROGRAM, SOME INFORMATION MAY BE OMITTED. This clinical summary was aggregated from multiple sources. Caution should be exercised in using it in the provision of clinical care. This summary normalizes information from multiple sources, and as a consequence, information in this document may materially change the coding, format and clinical context of patient data. In addition, data may be omitted in some cases. CLINICAL DECISIONS SHOULD BE BASED ON THE PRIMARY CLINICAL RECORDS. [facility] [employer] [facility]. provides no warranty or guarantee of the accuracy or completeness of information in this document.
== END 2025-03-07 18:42 | disposition home or self-care (01) ==
LOC: LAB 18:41
PROVIDERS: PCP Family Medicine; Visit Provider Physician Assistant
DX: Z01.419 Encounter for gynecological examination (general) (routine) without abnormal findings (principal)
CPT/HCPCS: 87624; 88175